=== PATIENT | male | born 1950 | race Caucasian/White ===

== ENCOUNTER 2020-02-08 19:19 | Observation (INO) | payer OTHER, SELFPAY ==
[2020-02-08] VITALS (7 sets, daily range): BP systolic 144–164; BP diastolic 77–105; PULSE 49–61; RESP 14–18; TEMP 36.3–36.6; O2SAT 96–99; BMI 29.8
--- NOTE | 2020-02-08 20:17 | DI.RAD.S_ITS ---
PROCEDURE: XR CHEST 1V INDICATIONS: chest pain TECHNIQUE: One view of the chest was acquired. COMPARISON: None. FINDINGS: Surgical changes and devices: Partially imaged left shoulder arthroplasty Lungs and pleura: Lungs are clear. No pleural effusions or pneumothorax. Mediastinum: Mediastinal contours appear normal. Heart size is normal. Bones and chest wall: No suspicious bony lesions. Overlying soft tissues appear unremarkable. IMPRESSION: No acute cardiopulmonary abnormalities. No focal airspace disease. Dictated by: Vega Dupree M.D. on 02/08/2020 at 21:39 Approved by: Vega Dupree M.D. on 02/08/2020 at 21:39
--- NOTE | 2020-02-08 20:28 | ED.CHESTPAIN ---
HPI - Chest Pain General Chief Complaint: Chest Pain Stated Complaint: SOB TINGGLING LEGS Time Seen by Provider: 02/08/20 20:27 Source: patient Mode of arrival: Family Vehicle Limitations: no limitations History of Present Illness HPI narrative: This is a 69-year-old male emergency department with complaint of shortness of breath and chest pressure that started while he was mowing his lawn. He states he typically runs and rain yesterday and the day before and had no issues. Today while mowing his lawn he started to feel short of breath, he felt like it was hard to push she was tired. He had tingling in both of his feet he felt a little lightheaded but never felt like he was going to pass out. He also had a sensation of chest pressure which has since improved but is still present. This all started about 4:00 a.m. in the evening. Patient denies any nausea, no vomiting, no diarrhea constipation. No abdominal pain. No issues with urination. He has not had any fevers, no cough cold or congestion. He denies any swelling in his lower extremities. He states he feels a little off today in general. He denies headache, denies any vision changes. No issues with weakness on 1 side versus the other and states his extremities are working properly. He had tingling in both legs but no tingling or numbness on right versus left. He does take medications for manic, he states there are 3 of them he believes one is Buproprion and is having trouble remembering the name of the others. Related Data Home Medications Medication Instructions Recorded Confirmed bupropion HCl 300 mg PO QAM 02/08/20 02/08/20 omeprazole 20 mg PO DAILY 02/08/20 02/08/20 simvastatin 20 mg PO BEDTIME 02/08/20 02/08/20 trazodone 100 mg PO BEDTIME PRN 02/08/20 02/08/20 vortioxetine [Trintellix] 20 mg PO DAILY 02/08/20 02/08/20 Allergies Allergy/AdvReac Type Severity Reaction Status Date / Time No Known Drug Allergies Allergy Verified 02/08/20 19:59 Review of Systems Review of Systems ROS Unobtainable: All systems reviewed & are unremarkable except as noted in HPI and below Patient History Medical History (Updated 02/08/20 @ 23:33 by DAISY Borrero) Bipolar disorder (Acute) Dyspepsia (Acute) Hyperlipidemia (Acute) Surgical History (Updated 02/08/20 @ 23:33 by DAISY Borrero) History of appendectomy (Acute) Family History (Updated 02/08/20 @ 23:34 by DAISY Borrero) Mother TIA (transient ischemic attack) Kidney disease Father Cancer Sister No significant medical problems Social History household members: spouse Smoking Status: Never smoker alcohol intake: never Smoking Status: Never smoker Substance Use Type: marijuana Exam Narrative Exam Narrative: GENERAL: Alert and oriented x three, well-nourished, well-appearing male in mild distress. HEENT: Head normocephalic, atraumatic, EOMI, pupils reactive, face symmetric, moist mucous membranes NECK: Supple, full range of motion CARDIOVASCULAR: Regular rate and rhythm without murmurs, rubs or gallops. Chest is nontender to palpation. No rash or erythema. RESPIRATORY: Breath sounds equal bilaterally, no wheezes rales or rhonchi. No tachypnea accessory muscle use. ABDOMEN: Soft, nontender. Normoactive bowel sounds all 4 quadrants. No guarding or rebound, rigidity, no mass : No CVA tenderness EXTREMITIES: Normal range of motion, no clubbing or edema. Neurovascularly intact NEUROLOGICAL: Cranial nerves II through XII grossly intact. Moving all extremities SKIN: Warm, dry, no petechiae, no rashes or lesions. Initial Vital Signs Initial Vital Signs: Vital Signs Temperature 97.8 F 02/08/20 19:59 Pulse Rate 61 02/08/20 19:59 Respiratory Rate 15 02/08/20 19:59 Blood Pressure 153/105 H 02/08/20 19:59 Pulse Oximetry 98 02/08/20 19:59 Scores HEART Score Heart Score history: Moderately Suspicious Heart Score EKG: Normal Heart Score Age: > or = 65 years old Heart Score risk factors: 1-2 risk factors Heart Score troponin: < or = to normal limit Heart Score Total: 4 Course Orders Ordered: ED Orders 02/08/20 20:02 EKG-12 Lead Stat 02/08/20 20:17 XR chest 1V Stat 02/08/20 20:30 Complete Blood Count AUTO DIFF Stat Comprehensive Metabolic Panel Stat Lipase Stat Lipid Panel Routine Magnesium Routine Partial Thromboplastin Time Stat Prothrombin Time INR Stat Troponin & CK Cardiac Panel Stat 02/08/20 22:19 Education, smoking cessation ONGOING 02/08/20 22:22 Consult to Discharge Planning Routine 02/08/20 22:23 Education, smoking cessation ONGOING 02/08/20 23:58 Troponin I Urgent 02/09/20 05:00 Basic Metabolic Panel Routine Acetaminophen (Tylenol) 650 mg PO Q6HR PRN PRN Reason: Fever/Mild Pain (1-3) Al Hydrox/Mg Hydrox/Simethicone (Maalox Plus) 30 ml PO Q6HR PRN PRN Reason: Dyspepsia Aspirin (Aspirin Ec) 81 mg PO DAILY [facility] Bisacodyl (Dulcolax) 10 mg PO DAILY PRN PRN Reason: Constipation Bupropion HCl (Wellbutrin Xl) 300 mg PO DAILY [facility] Last Admin: 02/09/20 00:26 Dose: Not Given Documented by: JODIE Calcium Carbonate (Tums) 1,000 mg PO Q4HR PRN PRN Reason: Dyspepsia Docusate Sodium (Colace) 100 mg PO BID PRN PRN Reason: Constipation Enoxaparin Sodium (Lovenox) 40 mg SUBCUT DAILY [facility] Sodium Chloride (Normal Saline 0.9%) 1,000 mls @ 75 mls/hr IV CONT [facility] Last Admin: 02/09/20 00:01 Dose: 75 mls/hr Documented by: JODIE Morphine Sulfate (Morphine) 2 mg IV Q5MIN PRN PRN Reason: Chest Pain Naloxone HCl (Narcan) 0.2 mg IV Q2MIN PRN PRN Reason: Opiate Reversal Nitroglycerin (Nitrostat) 0.4 mg SL [id number] PRN PRN Reason: Chest Pain Last Admin: 02/08/20 21:25 Dose: 0.4 mg Documented by: JENNIFER Nitroglycerin (Nitrostat) 0.4 mg SL [id number] PRN PRN Reason: Chest Pain Non-Formulary Medication (Vortioxetine [Trintellix]) 20 mg PO DAILY [facility] Ondansetron HCl (Zofran) 4 mg IV Q8HR PRN PRN Reason: Nausea And Vomiting Pantoprazole Sodium (Protonix) 20 mg PO DAILY PRN PRN Reason: Heartburn Simvastatin (Zocor) 20 mg PO BEDTIME ANA Trazodone HCl (Desyrel) 100 mg PO BEDTIME PRN PRN Reason: Sleep Last Admin: 02/09/20 00:17 Dose: 100 mg Documented by: JODIE Discontinued Medications Aspirin (Aspirin Chew) 324 mg PO NOW ONE Stop: 02/08/20 20:52 Last Admin: 02/08/20 21:25 Dose: 324 mg Documented by: CVANCE Vital Signs Vital signs: Vital Signs - 8 hr 02/08/20 19:59 02/08/20 21:24 02/08/20 21:25 Temperature 97.8 F Pulse Rate 61 50 L Respiratory Rate 15 18 Blood Pressure 153/105 H 163/83 H Blood Pressure [Left Arm] 163/83 H Pulse Oximetry 98 96 02/08/20 22:23 02/08/20 23:00 Temperature 97.4 F L Pulse Rate 49 L 50 L Respiratory Rate 14 18 Blood Pressure 163/81 H Blood Pressure [Left Arm] 144/77 H Pulse Oximetry 97 97 MDM - Chest Pain Lab Data Attestation: I reviewed the patient's lab results. Result diagrams: 02/08/20 20:30 02/08/20 20:30 Labs: Lab Results 02/08/20 02/08/20 02/08/20 Range/Units 20:30 20:30 20:30 WBC 5.8 (4.5-11.0) X10^3/uL RBC 4.56 (4.5-5.9) X10^6/uL Hgb 14.2 (13.5-17.5) g/dL Hct 42.4 (41-53) % MCV 93.0 (80-100) fL MCH 31.1 (26-34) PG MCHC 33.5 (30-36) % RDW 14.0 (11.6-14.8) % Plt Count 196 (150-400) X10^3/uL Neut % (Auto) 61.0 (50-75) % Lymph % (Auto) 28.9 (25-40) % [place] % (Auto) 6.1 (3-14) % Eos % (Auto) 3.5 (2-4) % Baso % (Auto) 0.5 (0-2) % Neut # (Auto) 3500 (0484-0152) /uL Lymph # (Auto) 1700 (0109-1129) /uL [place] # (Auto) 400 (0-900) /uL Eos # (Auto) 200 (0-450) /uL Baso # (Auto) 0 (0-100) /uL PT 10.9 (10.1-12.7) SECONDS INR 0.9 (0.9-1.3) APTT 30 (26.4-36.2) SECONDS Sodium 138 (137-145) mmol/L Potassium 3.4 (3.4-5.1) mmol/L Chloride 107 (98-107) mmol/L Carbon Dioxide 27 (22-32) mmol/L BUN 18 (9-20) mg/dL Creatinine 0.70 (0.66-1.25) mg/dL Estimated GFR > 60.0 (>60) mL/min BUN/Creatinine Ratio 25.7 H (6-22) Glucose 148 H (80-110) mg/dL Calcium 8.8 (8.4-10.2) mg/dL Magnesium (1.6-2.3) mg/dL Total Bilirubin 0.3 (0.2-1.3) mg/dL AST 57 (17-59) IU/L ALT 46 (<50) IU/L Alkaline Phosphatase 60 (38-126) U/L Total Creatine Kinase 265 H (55-170) U/L CK-MB (CK-2) 1.80 (<2.37) ng/mL CK-MB (CK-2) Rel Index 0.7 L (1.5-5.0) % Troponin I < 0.012 (0.01-0.034) ng/mL Total Protein 6.8 (6.3-8.2) g/dL Albumin 3.8 (3.5-5.0) g/dL Globulin 3.0 (1.7-4.1) g/dL Albumin/Globulin Ratio 1.3 (1.0-2.8) Triglycerides (35-150) mg/dL Cholesterol (140-199) mg/dL LDL Cholesterol, Calc (<100) mg/dL HDL Cholesterol (40-60) mg/dL Lipase 86 (23-300) U/L 02/08/20 02/08/20 Range/Units 20:30 20:30 WBC (4.5-11.0) X10^3/uL RBC (4.5-5.9) X10^6/uL Hgb (13.5-17.5) g/dL Hct (41-53) % MCV (80-100) fL MCH (26-34) PG MCHC (30-36) % RDW (11.6-14.8) % Plt Count (150-400) X10^3/uL Neut % (Auto) (50-75) % Lymph % (Auto) (25-40) % [place] % (Auto) (3-14) % Eos % (Auto) (2-4) % Baso % (Auto) (0-2) % Neut # (Auto) (2824-6421) /uL Lymph # (Auto) (4795-6921) /uL [place] # (Auto) (0-900) /uL Eos # (Auto) (0-450) /uL Baso # (Auto) (0-100) /uL PT (10.1-12.7) SECONDS INR (0.9-1.3) APTT (26.4-36.2) SECONDS Sodium (137-145) mmol/L Potassium (3.4-5.1) mmol/L Chloride (98-107) mmol/L Carbon Dioxide (22-32) mmol/L BUN (9-20) mg/dL Creatinine (0.66-1.25) mg/dL Estimated GFR (>60) mL/min BUN/Creatinine Ratio (6-22) Glucose (80-110) mg/dL Calcium (8.4-10.2) mg/dL Magnesium 2.2 (1.6-2.3) mg/dL Total Bilirubin (0.2-1.3) mg/dL AST (17-59) IU/L ALT (<50) IU/L Alkaline Phosphatase (38-126) U/L Total Creatine Kinase (55-170) U/L CK-MB (CK-2) (<2.37) ng/mL CK-MB (CK-2) Rel Index (1.5-5.0) % Troponin I (0.01-0.034) ng/mL Total Protein (6.3-8.2) g/dL Albumin (3.5-5.0) g/dL Globulin (1.7-4.1) g/dL Albumin/Globulin Ratio (1.0-2.8) Triglycerides 107 (35-150) mg/dL Cholesterol 178 (140-199) mg/dL LDL Cholesterol, Calc 104 H (<100) mg/dL HDL Cholesterol 53 (40-60) mg/dL Lipase (23-300) U/L Imaging Data Chest x-ray: Radiologist's Impression: [address] [address] XRay Report Signed Patient: Memo Escobedo KMR#: [id number] : 3Acct:[id number] Age/Sex: 69 / MDate of Service: 02/08/20 Loc: ED Accession Number: [id number] Procedure: XR chest 1V Ordering Provider: Brittney Mike D.O. PROCEDURE: XR CHEST 1V INDICATIONS: chest pain TECHNIQUE: One view of the chest was acquired. COMPARISON: None. FINDINGS: Surgical changes and devices: Partially imaged left shoulder arthroplasty Lungs and pleura: Lungs are clear. No pleural effusions or pneumothorax. Mediastinum: Mediastinal contours appear normal. Heart size is normal. Bones and chest wall: No suspicious bony lesions. Overlying soft tissues appear unremarkable. IMPRESSION: No acute cardiopulmonary abnormalities. No focal airspace disease. Dictated by: Vega Dupree M.D. on 02/08/2020 at 21:39 Approved by: Vega Dupree M.D. on 02/08/2020 at 21:39 ECG Data Attestation: I personally reviewed and interpreted this ECG as follows: Prior ECG tracings: not available for review Interpretation: Sinus bradycardia rate of 55 VT 144 QRS 88 QTC of 430. No ST elevation or depression noted. No prior EKG available. MDM Narrative Medical decision making narrative: Recheck after ASA and nitro SL, patient states shortness of breath and chest pain have completely resolved. He is feeling much better. He does have risk factors as heart score is 4. I spoke with the hospitalist for observation and stress testing. Discussed with HOME SCHOOL COORDINATOR Alfredo Lyn for observation and he accepts. Discharge Plan Departure Patient Disposition: Admitted as Observation Clinical Impression: Chest pain Discharge Date/Time: 02/08/20 23:11 Admit Date/Time: 02/08/20 23:03 Admit Provider: Memo Lyn
[2020-02-08 21:09] LABS: Add Manual Diff / Slide Review NO; Basophils Absolute Auto 0 /uL (0-100); Basophils Percent Auto 0.5 % (0-2); Eosinophils Absolute Auto 200 /uL (0-450); Eosinophils Percent Auto 3.5 % (2-4); Hematocrit 42.4 % (41-53); Hemoglobin 14.2 g/dL (13.5-17.5); INR 0.9 (0.9-1.3); Lymphocytes Absolute Auto 1700 /uL (1100-4500); Lymphocytes Percent Auto 28.9 % (25-40); Mean Corpuscular HGB Conc 33.5 % (30-36); Mean Corpuscular Hemoglobin 31.1 PG (26-34); Monocytes Absolute Auto 400 /uL (0-900); Monocytes Percent Auto 6.1 % (3-14); Neutrophils Absolute Auto 3500 /uL (1500-7000); Platelet Count 196 X10^3/uL (150-400); Prothrombin Time 10.9 SECONDS (10.1-12.7); Red Blood Cell Count 4.56 X10^6/uL (4.5-5.9); White Blood Cell Count 5.8 X10^3/uL (4.5-11.0)
[2020-02-08 21:11] LABS: PTT Partial Thromboplastin Tim 30 SECONDS (26.4-36.2)
[2020-02-08 21:13] LABS: Alanine Aminotransferase 46 IU/L (<50); Albumin 3.8 g/dL (3.5-5.0); Albumin Globulin Ratio 1.3 (1.0-2.8); Alkaline Phosphatase 60 U/L (38-126); Aspartate Aminotransferase 57 IU/L (17-59); BUN Creatinine Ratio 25.7 (6-22); Bilirubin Total 0.3 mg/dL (0.2-1.3); Blood Urea Nitrogen 18 mg/dL (9-20); Calcium 8.8 mg/dL (8.4-10.2); Carbon Dioxide 27 mmol/L (22-32); Chloride 107 mmol/L (98-107); Creatine Kinase 265 U/L (55-170); Estimated Glomerular Filt Rate > 60.0 mL/min (>60); Glucose 148 mg/dL (80-110); HEMOLYSIS 17 (0-50); Lipase 86 U/L (23-300); Potassium 3.4 mmol/L (3.4-5.1); Sodium 138 mmol/L (137-145); Total Protein 6.8 g/dL (6.3-8.2)
[2020-02-08 21:24] LABS: Troponin I < 0.012 ng/mL (0.01-0.034)
[2020-02-08] MEDS: ASPIRIN 81 MG CHEW TAB 324 MG PO (21:25)
[2020-02-08] MEDS: NITROGLYCERIN 0.4 MG SL TAB SL (21:25)
[2020-02-08 21:28] LABS: CKMB % Relative Index 0.7 % (1.5-5.0)
[2020-02-08 22:36] LABS: Magnesium 2.2 mg/dL (1.6-2.3)
[2020-02-08 22:51] LABS: Cholesterol 178 mg/dL (140-199); HDL Cholesterol 53 mg/dL (40-60); LDL Cholesterol Calculated 104 mg/dL (<100); Triglycerides 107 mg/dL (35-150)
--- NOTE | 2020-02-08 23:24 | PM.HP.1 ---
History of Present Illness History of Present Illness Date Patient Seen: 02/08/20 Time Patient Seen: 22:30 Chief complaint: SOB TINGGLING LEGS Narrative: Mr. Memo Escobedo is a 69-year-old male the with a history significant for bipolar disorder hyperlipidemia and dyspepsia who presents to the ER with chest pain and shortness of breath. The patient reports that at 4:00 p.m. he was mowing his lawn 1 8 developed chest pressure and some shortness of breath. He felt it was hard push similar and felt fatigued and lightheaded, also reports tingling of both feet which he has not experienced previously. He called at baseline who referred him to the ER and upon arrival he states his chest pressure was improved but still present. His chest MrJose Armando resolved with a single dose of sublingual nitroglycerin. He continues to feel fatigued. He does report that at the end of December beginning of January that he had the flu and that he subsequently felt tired for the following 3 weeks. He reports for the last 1 week he has been feeling fine. He is normally active and runs. Lives on [address]. He denies complaints headache or vision changes, nasal congestion or sore throat. He does described substernal chest pressure that is now resolved without radiation to the back shoulder or jaw. He states he always has a low heart rate and rarely gets over 60 and can typically be in the 40s to 50s. He reports no nausea, vomiting or diaphoresis. He reports no heartburn and takes omeprazole daily. He denies changes in bowel habits with her last bowel movement yesterday. He reports no urinary difficulty able to form a strong stream and nocturia 0-1 time nightly. He denies swelling of the extremities. Upon arrival to the ER the patient is afebrile with temperature 97.8?, heart rate of 61, blood pressure 153/105, respirations of 15 saturating 98% on room air. Chest x-ray was taken which showed no acute cardiopulmonary processes. Twelve lead EKG finds sinus bradycardia with ventricular rate of 54 without ectopy or block, normal axis and no ST or T-wave changes. On laboratory analysis he has a white count of 5.8, hemoglobin 14.2, hematocrit of 42.4 platelets 198. On coags he has a PT of 10.9, INR 0.9 and a PTT of 30. On chemistries his electrolytes are within normal limits with a borderline potassium of 3.4. His BUN is 18 and creatinine 0.7 with a nonfasting glucose 148. His liver function tests are all within normal limits. He has a total CK of 265, CK-MB of 1.8 with an index of 0.7. His troponin is less than 0.012. He does have a family history of cardiovascular disease and his grandmother grandfather and his mother had cerebrovascular disease. The patient received aspirin 324 mg chewed and the aforementioned sublingual nitroglycerin x1. Patient admitted to the medicine service for chest pain rule out ACS. Patient History Medical History (Updated 02/08/20 @ 23:33 by DAISY Borrero) Bipolar disorder (Acute) Dyspepsia (Acute) Hyperlipidemia (Acute) Surgical History (Updated 02/08/20 @ 23:33 by DAISY Borrero) History of appendectomy (Acute) Family & Social History Family History (Updated 02/08/20 @ 23:34 by DAISY Borrero) Mother TIA (transient ischemic attack) Kidney disease Father Cancer Sister No significant medical problems Tobacco & Substance use: Smoking Status Never smoker Substance Use Type marijuana Comment: The patient lives on [place] in a single family 3 level home with his to him he has been for 30 years. He reports that his father from sarcoma muscle and his mother had TIAs and kidney disease. His sister is in good health and he has a half brother whom he does not know his medical history has 2 children he describes in is in good health. He has that his grandfather and grandmother have a history of heart disease. 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 Alcohol: The patient denies consuming alcohol Substance use: The patient endorses periodic use of cannabis to facilitate sleep last use 1 week ago. Advanced directives: The patient has formal advanced directive insulin states his desire that he wishes to be FULL CODE. He designates his to be his surrogate decision maker. Meds Home Medications and Allergies Home Medications Medication Instructions Recorded Confirmed Type bupropion HCl 300 mg PO QAM 02/08/20 02/08/20 History omeprazole 20 mg PO DAILY 02/08/20 02/08/20 History simvastatin 20 mg PO BEDTIME 02/08/20 02/08/20 History trazodone 100 mg PO BEDTIME PRN 02/08/20 02/08/20 History vortioxetine [Trintellix] 20 mg PO DAILY 02/08/20 02/08/20 History Allergies Allergy/AdvReac Type Severity Reaction Status Date / Time No Known Drug Allergies Allergy Verified 02/08/20 19:59 Review of Systems Review of Systems ROS: Yes All systems reviewed with the patient and are negative except as otherwise documented Exam Vital Signs (past 8 hours): - 02/08/20 19:59 02/08/20 21:24 02/08/20 21:25 Temperature 97.8 F Pulse Rate 61 50 L Respiratory Rate 15 18 Blood Pressure 153/105 H 163/83 H Blood Pressure [Left Arm] 163/83 H Pulse Oximetry 98 96 02/08/20 22:23 02/08/20 23:06 02/08/20 23:08 Temperature Pulse Rate 49 L 52 L 49 L Respiratory Rate 14 Blood Pressure 144/77 H Blood Pressure [Left Arm] 144/77 H 164/77 H Pulse Oximetry 97 96 97 Oxygen Delivery Method Room Air Narrative Exam Narrative: GENERAL APPEARANCE: well developed, well nourished, in no acute distress. HEENT: Normocephalic, wears glasses, PERRLA, conjunctiva clear, EOMs intact without nystagmus, no sinus tenderness to percussion, no rhinorrhea, mucous membranes are moist and pink without lesions or exudate. NECK/THYROID: neck supple, no JVD, no carotid bruit, no thyromegaly, trachea midline. LYMPH NODES: no cervical or supraclavicular lymphadenopathy. SKIN: [place], warm and dry, no visible lesions, rashes, ulcerations or petechiae. HEART: Bradycardic heart rate with regular rhythm, S1-S2, no murmur, no rubs or gallops, brisk capillary refill, no edema LUNGS: clear to auscultation bilaterally, no coarseness crackles or wheezing, no cough present CHEST: Symmetrical movement, no accessory muscle use, good tidal volume. ABDOMEN: Soft, round, dull to percussion, no abdominal tenderness, no guarding or peritoneal signs, no organomegaly, no flank or suprapubic tenderness, active bowel tones. BACK: Normal curvature, nontender to palpation, no CVA tenderness on percussion, no back pain with straight leg raise. EXTREMITIES: moves all extremities, strength is 5/5 and symmetrical, no deformities or joint effusions. NEUROLOGIC: AAO x4, no focal neurologic deficits, cranial nerves II-XII grossly intact, slightly decreased sensation bilateral feet, hearing grossly normal to speech. PSYCH: Good judgment, good insight, linear thought process, cooperative, appropriate with stable behavior. Objective Labs Result Diagrams: 02/08/20 20:30 02/08/20 20:30 Labs: Laboratory Results - last 24 hr 02/08/20 02/08/20 02/08/20 20:30 20:30 20:30 WBC 5.8 RBC 4.56 Hgb 14.2 Hct 42.4 MCV 93.0 MCH 31.1 MCHC 33.5 RDW 14.0 Plt Count 196 Neut % (Auto) 61.0 Lymph % (Auto) 28.9 [place] % (Auto) 6.1 Eos % (Auto) 3.5 Baso % (Auto) 0.5 Neut # (Auto) 3500 Lymph # (Auto) 1700 [place] # (Auto) 400 Eos # (Auto) 200 Baso # (Auto) 0 PT 10.9 INR 0.9 APTT 30 Sodium 138 Potassium 3.4 Chloride 107 Carbon Dioxide 27 BUN 18 Creatinine 0.70 Estimated GFR > 60.0 BUN/Creatinine Ratio 25.7 H Glucose 148 H Calcium 8.8 Magnesium Total Bilirubin 0.3 AST 57 ALT 46 Alkaline Phosphatase 60 Total Creatine Kinase 265 H CK-MB (CK-2) 1.80 CK-MB (CK-2) Rel Index 0.7 L Troponin I < 0.012 Total Protein 6.8 Albumin 3.8 Globulin 3.0 Albumin/Globulin Ratio 1.3 Triglycerides Cholesterol LDL Cholesterol, Calc HDL Cholesterol Lipase 86 02/08/20 02/08/20 20:30 20:30 WBC RBC Hgb Hct MCV MCH MCHC RDW Plt Count Neut % (Auto) Lymph % (Auto) [place] % (Auto) Eos % (Auto) Baso % (Auto) Neut # (Auto) Lymph # (Auto) [place] # (Auto) Eos # (Auto) Baso # (Auto) PT INR APTT Sodium Potassium Chloride Carbon Dioxide BUN Creatinine Estimated GFR BUN/Creatinine Ratio Glucose Calcium Magnesium 2.2 Total Bilirubin AST ALT Alkaline Phosphatase Total Creatine Kinase CK-MB (CK-2) CK-MB (CK-2) Rel Index Troponin I Total Protein Albumin Globulin Albumin/Globulin Ratio Triglycerides 107 Cholesterol 178 LDL Cholesterol, Calc 104 H HDL Cholesterol 53 Lipase Assessment & Plan Assessment & Plan narrative: 1. Acute chest pain, substernal nonradiating, present on admission, active. -Symptoms onset while mowing lawn today at 4:00 p.m. with associated shortness of breath and lightheadedness with bilateral feet tingling, no complaints of -palpitations nausea vomiting or diaphoresis. -Chest pressure persisted but improved upon arrival to the ER relieved with 1 sublingual nitroglycerin. -Chest x-ray finds no acute cardiopulmonary processes, 12 lead EKG finds sinus Mario at ventricular rate of 54 without ectopy, block, ST or T-wave changes. -Total CK slightly elevated 265, MB is 1.0 with index is 0.7. Troponin is less than 0.012. -Patient received aspirin 324 mg chewed in the ER, order aspirin 81 mg daily. -Ordered nitroglycerin 0.4 mg sublingual Q 5 minutes x3 as needed for chest pain. -Ordered morphine 2 mg as needed for chest pain unrelieved by nitro. -Patient will remain on telemetry. -Ordered stress test for the morning, patient is NPO at midnight. 2. Elevated blood pressure without diagnosis of hypertension, present on admission, active. -Patient had a blood pressure of 153/105 admission to the emergency department. Blood pressure is very between mid 140s and 160s. -The patient does not take routine antihypertensive medications. -Patient is currently pain-free, will monitor blood pressures. -Will evaluate the need for antihypertensive medication if pressure is remain elevated. 3. Dyslipidemia, chronic, stable. -Will continue patient's home regimen of simvastatin 20 mg daily. -Will obtain lipid panel with morning labs. 4. Bipolar disorder, chronic, stable. -Cooperative with appropriate behaviors. -Will continue home medications of bupropion ER 300 mg daily and Trintellix 20 mg daily. -Will continue patient's trazodone 100 mg at bedtime for sleep. 5. Dyspepsia, chronic, stable -Patient has been taking omeprazole daily without complaints of symptoms. -Will continue omeprazole 20 mg daily as needed for heartburn. VTE prophylaxis: SCDs, enoxaparin. IV fluids: Normal saline 75 cc/hour. Diet: Heart healthy, NPO at midnight. The patient is admitted to the hospital for cardiac monitoring and further evaluation related to the patient's per day and symptoms and risk for potential complications and adverse events. The patient is admitted as observation with expected length of stay to be less than 2 midnights. Scores GCS [place] coma scale eye opening: Spontaneous [place] coma scale verbal response: Orientated May coma scale motor response: Obey commands [place] coma scale total score: 15
[2020-02-09] MEDS: SODIUM CHLORIDE 0.9% 1,000 ML 75 ML IV (00:01)
[2020-02-09 00:06] VITALS: BMI 29.8
[2020-02-09] MEDS: TRAZODONE 100 MG TABLET PO (00:17)
[2020-02-09 00:55] LABS: Troponin I < 0.012 ng/mL (0.01-0.034)
[2020-02-09 02:39] VITALS: PULSE 52
[2020-02-09 03:00] VITALS: O2SAT 97
[2020-02-09 05:14] VITALS: BP 133/61; PULSE 59; RESP 16; TEMP 36.2; O2SAT 96
[2020-02-09 06:42] LABS: BUN Creatinine Ratio 24.3 (6-22); Blood Urea Nitrogen 17 mg/dL (9-20); Calcium 8.5 mg/dL (8.4-10.2); Carbon Dioxide 26 mmol/L (22-32); Chloride 107 mmol/L (98-107); Estimated Glomerular Filt Rate > 60.0 mL/min (>60); Glucose 89 mg/dL (80-110); HEMOLYSIS < 15 (0-50); Potassium 3.9 mmol/L (3.4-5.1); Sodium 137 mmol/L (137-145)
--- NOTE | 2020-02-09 06:54 | PC.ADMIT ---
[address] Admission Note: Late entry 2330 - Pt arrived to unit without issues via w/c. Pt alert and oriented x4. SBA to bed. Pt has no complaints of chest pain or shortness of breath. Skin check done with STORM Johnson. Tele reading sinus bradycardia, pt asymptomatic without complaints. Riki VILLA aware. The patient,Memo Escobedo,69 y/o, was given written information regarding hospital policies, unit procedures and contact persons. Patient's smoking status: Never smoker. Vital Signs - 8 hr 02/08/20 23:00 02/08/20 23:06 02/08/20 23:08 Temperature 97.4 F L Pulse Rate 50 L 52 L 49 L Respiratory Rate 18 Blood Pressure 163/81 H 144/77 H Blood Pressure [Left Arm] 164/77 H Pulse Oximetry 97 96 97 02/09/20 02:39 02/09/20 03:00 02/09/20 05:14 Temperature 97.2 F L Pulse Rate 52 L 59 L Respiratory Rate 16 Blood Pressure 133/61 Blood Pressure [Left Arm] Pulse Oximetry 97 96
[2020-02-09 09:00] VITALS: BP 148/85; PULSE 56; RESP 16; TEMP 36.2; O2SAT 98
[2020-02-09] MEDS: buPROPion XL 150 MG TAB 300 MG PO (09:11)
[2020-02-09] MEDS: ASPIRIN EC 81 MG TABLET PO (09:11)
[2020-02-09] MEDS: ENOXAPARIN 40 MG/0.4 ML SYRINGE SUBCUT (09:11)
--- NOTE | 2020-02-09 11:49 | CM.DANOTE ---
DCP Assessment: (EMR Reviewed): Patient is a pleasant 69 year old male admitted to the care of the hospitalist team for monitoring of chest pain. Met with the patient in his room and introduced self and role. Confirmed insurance with [employer]. PCP Dr. Wolf. 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 He report being independent with alls ADLs at baseline including driving. Patient state his plan is to discharge home with his and that they will be going to [employer] for the next short while. Patient is to have a stress test today, pending results will DC today. I: Kahlil (Confirmed) P: Discharge home with , Katty. Patient reports this is his preferred plan and feels confident with it. No barriers to discharge identified but will continue to monitor and be available for discharge needs. SN Roslyn Abdi RN Discharge Planning/Care Management CM Discharge Assessment Start: 02/09/20 11:47 Freq: Status: Active Protocol: Document 02/09/20 11:47 HS (Rec: 02/09/20 11:49 HS [id number]) Discharge Planning Assessment Assigned Optical Fabrication Technician Roslyn Phan RN/SN [place] DPOA/Assigned Designee Name Katty Soto (Spouse) Contact Information [phone] Advance Directives? Yes History Provided By Patient,Medical Record Has Patient been admitted in last 30 No days? Prior Living Arrangements House Household Members spouse Type of transporation used prior to Drives own vehicle admit Independent with ADL's Yes Is patient alert and oriented? Yes Caregiver for Another No Barriers to Discharge No Discharge Plan Home Referrals Initiated None needed Whiteboard Updated in Patient Room with Yes name and ext. # of Optical Fabrication Technician Review Status In Process Next Review Type Continued Stay Review
--- NOTE | 2020-02-09 12:03 | PM.TREADMILL ---
Cardiac Stress Test Report Referral & Results Date Patient Seen: 02/09/20 Time Patient Seen: 12:03 Requesting provider: Memo Lyn Indication: chest pain Rest ECG: normal sinus rhythm Procedure Note: Standard Jose protocol, 9:01, 9.7 METS Very good exercise capacity, DEIDRE -18% Normal hemodynamic response to exercise No chest pain or anginal symptoms Resting ECG sinus rhythm, no ST changes; no ectopy Impression: normal exercise stress test Nuclear images pending. Please note: Actual ECG tracings can be found in the PACS system.
[2020-02-09 13:30] VITALS: BP 166/89; PULSE 61; RESP 18; TEMP 36.6; O2SAT 97
--- NOTE | 2020-02-09 13:54 | P.DS_ITS ---
History of Present Illness History of Present Illness Date Patient Seen: 02/09/20 Chief complaint: SOB TINGGLING LEGS Narrative: Mr. Memo Escobedo is a 69-year-old male the with a history significant for bipolar disorder hyperlipidemia and dyspepsia who presents to the ER with chest pain and shortness of breath. The patient reports that at 4:00 p.m. he was mowing his lawn 1 8 developed chest pressure and some shortness of breath. He felt it was hard push similar and felt fatigued and lightheaded, also reports tingling of both feet which he has not experienced previously. He called at baseline who referred him to the ER and upon arrival he states his chest pressure was improved but still present. His chest MrJose Armando resolved with a single dose of sublingual nitroglycerin. He continues to feel fatigued. He does report that at the end of December beginning of January that he had the flu and that he subsequently felt tired for the following 3 weeks. He reports for the last 1 week he has been feeling fine. He is normally active and runs. Lives on [address]. He denies complaints headache or vision changes, nasal congestion or sore throat. He does described substernal chest pressure that is now resolved without radiation to the back shoulder or jaw. He states he always has a low heart rate and rarely gets over 60 and can typically be in the 40s to 50s. He reports no nausea, vomiting or diaphoresis. He reports no heartburn and takes omeprazole daily. He denies changes in bowel habits with her last bowel movement yesterday. He reports no urinary difficulty able to form a strong stream and nocturia 0-1 time nightly. He denies swelling of the extremities. Upon arrival to the ER the patient is afebrile with temperature 97.8?, heart rate of 61, blood pressure 153/105, respirations of 15 saturating 98% on room air. Chest x-ray was taken which showed no acute cardiopulmonary processes. Twelve lead EKG finds sinus bradycardia with ventricular rate of 54 without ectopy or block, normal axis and no ST or T-wave changes. On laboratory analysi s he has a white count of 5.8, hemoglobin 14.2, hematocrit of 42.4 platelets 198. On coags he has a PT of 10.9, INR 0.9 and a PTT of 30. On chemistries his electrolytes are within normal limits with a borderline potassium of 3.4. His BUN is 18 and creatinine 0.7 with a nonfasting glucose 148. His liver function tests are all within normal limits. He has a total CK of 265, CK-MB of 1.8 with an index of 0.7. His troponin is less than 0.012. He does have a family history of cardiovascular disease and his grandmother grandfather and his mother had cerebrovascular disease. The patient received aspirin 324 mg chewed and the aforementioned sublingual nitroglycerin x1. Patient admitted to the medicine service for chest pain rule out ACS. Discharge Providers Provider Date of admission: 02/08/20 23:03 Discharge Date: 02/09/20 Consults: 02/08/20 22:22 Consult to Discharge Planning Routine Comment: Discharge provider: Louisa Lagunas MD Summary Hospital Course Discharge Diagnosis: 1. Chest pain 2. Hyperlipidemia 3. Gastroesophageal reflux disease 4. Bipolar affective disorder 5. Probable hypertension Hospital Course: Patient was admitted to the hospital for evaluation and treatment of chest pain. He underwent a nuclear medicine stress test which showed no reversible ischemia. The patient had no further chest pain. He was noted to be hypertensive. I discussed his elevated blood pressure with him. Patient reports that he often has blood pressure in the office in the hospital which resolved at home. I recommended that he obtain a home blood pressure cuff record the blood pressures and discuss with his primary care physician in follow-up. Patient is deemed appropriate for discharge and arrangements are made for him to discharge home. Status at Discharge Cognitive/behavioral status at discharge: oriented Functional status at discharge: independent ambulation Overall status at discharge: patient is back to baseline Time Spent with Patient Time spent: Less than 30 minutes Exam Vital Signs (past 8 hours): - 02/09/20 09:00 02/09/20 13:30 Temperature 97.2 F L 97.8 F Pulse Rate 56 L 61 Respiratory Rate 16 18 Blood Pressure 148/85 H 166/89 H Pulse Oximetry 98 97 Oxygen Delivery Method Room Air Oxygen Flow Rate 0 Narrative Exam Narrative: Lungs clear to auscultation Cardiac exam regular rate and rhythm normal S1-S2 Abdomen soft nontender Extremity no edema Objective Labs Result Diagrams: 02/08/20 20:30 02/09/20 05:55 Labs: Laboratory Results - last 24 hr 02/08/20 02/08/20 02/08/20 20:30 20:30 20:30 WBC 5.8 RBC 4.56 Hgb 14.2 Hct 42.4 MCV 93.0 MCH 31.1 MCHC 33.5 RDW 14.0 Plt Count 196 Neut % (Auto) 61.0 Lymph % (Auto) 28.9 [place] % (Auto) 6.1 Eos % (Auto) 3.5 Baso % (Auto) 0.5 Neut # (Auto) 3500 Lymph # (Auto) 1700 [place] # (Auto) 400 Eos # (Auto) 200 Baso # (Auto) 0 PT 10.9 INR 0.9 APTT 30 Sodium 138 Potassium 3.4 Chloride 107 Carbon Dioxide 27 BUN 18 Creatinine 0.70 Estimated GFR > 60.0 BUN/Creatinine Ratio 25.7 H Glucose 148 H Calcium 8.8 Magnesium Total Bilirubin 0.3 AST 57 ALT 46 Alkaline Phosphatase 60 Total Creatine Kinase 265 H CK-MB (CK-2) 1.80 CK-MB (CK-2) Rel Index 0.7 L Troponin I < 0.012 Total Protein 6.8 Albumin 3.8 Globulin 3.0 Albumin/Globulin Ratio 1.3 Triglycerides Cholesterol LDL Cholesterol, Calc HDL Cholesterol Lipase 86 02/08/20 02/08/20 02/08/20 20:30 20:30 23:58 WBC RBC Hgb Hct MCV MCH MCHC RDW Plt Count Neut % (Auto) Lymph % (Auto) [place] % (Auto) Eos % (Auto) Baso % (Auto) Neut # (Auto) Lymph # (Auto) [place] # (Auto) Eos # (Auto) Baso # (Auto) PT INR APTT Sodium Potassium Chloride Carbon Dioxide BUN Creatinine Estimated GFR BUN/Creatinine Ratio Glucose Calcium Magnesium 2.2 Total Bilirubin AST ALT Alkaline Phosphatase Total Creatine Kinase CK-MB (CK-2) CK-MB (CK-2) Rel Index Troponin I < 0.012 Total Protein Albumin Globulin Albumin/Globulin Ratio Triglycerides 107 Cholesterol 178 LDL Cholesterol, Calc 104 H HDL Cholesterol 53 Lipase 02/09/20 05:55 WBC RBC Hgb Hct MCV MCH MCHC RDW Plt Count Neut % (Auto) Lymph % (Auto) [place] % (Auto) Eos % (Auto) Baso % (Auto) Neut # (Auto) Lymph # (Auto) [place] # (Auto) Eos # (Auto) Baso # (Auto) PT INR APTT Sodium 137 Potassium 3.9 Chloride 107 Carbon Dioxide 26 BUN 17 Creatinine 0.70 Estimated GFR > 60.0 BUN/Creatinine Ratio 24.3 H Glucose 89 Calcium 8.5 Magnesium Total Bilirubin AST ALT Alkaline Phosphatase Total Creatine Kinase CK-MB (CK-2) CK-MB (CK-2) Rel Index Troponin I Total Protein Albumin Globulin Albumin/Globulin Ratio Triglycerides Cholesterol LDL Cholesterol, Calc HDL Cholesterol Lipase Discharge Plan Discharge Plan Patient Disposition: Home Discharge orders & Medications Prescriptions: Continued trazodone 100 mg Tablet 100 mg PO BEDTIME PRN (Reason: Sleep) RF: 0 simvastatin 20 mg Tablet 20 mg PO BEDTIME RF: 0 omeprazole 20 mg Capsule,Delayed Release(Dr/Ec) 20 mg PO DAILY RF: 0 bupropion HCl 300 mg Tablet Extended Release 24 Hr 300 mg PO QAM RF: 0 Trintellix 20 mg Tablet 20 mg PO DAILY RF: 0 Diet/Activity/Treatments Diet: Diet as Tolerated Activity: as tolerated Visit Report/Discharge Packet Instructions: DI for Chest Pain Visit Report Forms: Patient Portal/API, Stroke Signs & Symptoms Discharge Data Attending Provider: Memo Lyn Admit Date/Time: 02/08/20 23:03 Quality VTE Deep Vein Thrombosis/Pulmonary Embolism Present on Admission: No
--- NOTE | 2020-02-09 14:25 | PC.NURSE ---
Discharge Pt denies pain. no chest pain or SOB. Pt completed stress test without issue. PIV removed prior to d/c. D/c instructions provided to pt. He left with RN escort. Pt plans to drive himself.
--- NOTE | 2020-02-10 10:23 | DI.NM.S_ITS ---
DATE OF SERVICE: 02/09/2020 PROCEDURE: Exercise perfusion study. INDICATION: Chest pain with underlying hypertension and hyperlipidemia. RADIOPHARMACEUTICAL: 27.4 millicurie technetium-99m Myoview IV was injected at stress. This is a stress study only. CARDIAC STRESS: The patient walked on Jose protocol for about 9 minutes and achieved 87 percent of target heart rate. There was a hypertensive blood pressure response. Baseline blood pressure 166/80. Peak blood pressure 210/90. Maximum heart rate 133 beats per minute. The patient achieved 10.1 METS of workload and functional aerobic impairment -18 percent. Baseline EKG revealed sinus rhythm. During stress, there were no convincing ischemic changes. There was no significant arrhythmias. No chest pain. RAW DATA: There is increased subdiaphragmatic activity. GATED STUDY: Stress LV ejection 67 percent without any obvious wall motion abnormalities. Lung-heart ratio 0.31, which is within normal limits. The stress LV end-diastolic volume 140 mL MYOCARDIAL PERFUSION: Stress supine images revealed small size, mildly decreased perfusion of basal inferior wall, which got resolved during prone images, suggestive of diaphragmatic tissue attenuation artifact. Prone images revealed normal myocardial perfusion. CONCLUSION: I will call this study a normal myocardial perfusion study. Good exercise tolerance. Preserved LV function. No anginal symptoms. Hypertensive blood pressure response. Overall this is a low risk myocardial perfusion scan. Memo Escobedo - Lashonda/denise doc#: [id number]/job#: [id number] dd: 02/09/2020 16:46:00 dt: 02/10/2020 10:11:00 DICTATING MD/COPIES TO: Fantasma Whitt MD COPIES MNE: JD;
--- NOTE | 2020-02-15 15:23 | PC.NURSE ---
Late entry: NS stop time 02/08 2326
== END 2020-02-09 14:20 | disposition home or self-care (01) ==
LOC: ED 22:12 → AC 23:04
PROVIDERS: Admitting Provider Nurse Practitioner Adult Health; Emergency Provider Emergency Medicine; Visit Provider Nurse Practitioner Adult Health
DX: R07.9 Chest pain, unspecified (principal); R06.02 Shortness of breath; E78.5 Hyperlipidemia, unspecified; K21.9 Gastro-esophageal reflux disease without esophagitis; F31.9 Bipolar disorder, unspecified; R03.0 Elevated blood-pressure reading, without diagnosis of hypertension
CPT/HCPCS: 36415; 71045; 78451; 80048; 80053; 80061; 82550; 82553; 83690; 83735; 84484; 85025; 85610; 85730; 93005; 93010; 93017; 96360; 96361; 96372; 99284; G0378; A9502; J1650

== ENCOUNTER 2020-08-22 19:52 | Emergency (ER) | payer OTHER, SELFPAY ==
[2020-08-22] VITALS (11 sets, daily range): BP systolic 145–171; BP diastolic 69–92; PULSE 52–62; RESP 16–24; O2SAT 95–99; BMI 28.5
--- NOTE | 2020-08-22 20:02 | DI.CT.S_ITS ---
PROCEDURE: CT STROKE INDICATIONS: neuro changes NON TPA CANDIDATE TECHNIQUE: Noncontrast 4.5 mm thick angled axial sections acquired from the foramen magnum to the vertex, with coronal reformats. For radiation dose reduction, the following was used: automated exposure control, adjustment of mA and/or kV according to patient size. COMPARISON: None. FINDINGS: Image quality: Excellent. CSF spaces: Basal cisterns are patent. No extra-axial fluid collections. The ventricles are symmetric in size and shape. Brain: No intracranial bleeds or masses. There is cerebral volume loss for age, with resultant ventricular and sulcal prominence. There are periventricular and deep white matter chronic small vessel ischemic changes. 2.5 centimeter hypodensity noted in the left occipital lobe with surrounding edema and may represent subacute infarct with sciatic arcus edema versus neoplastic process with vasogenic edema. There is intracranial internal carotid artery atherosclerosis. Skull and face: Calvarium and visualized facial bones appear intact, without suspicious lesions. Sinuses: Visualized sinuses and mastoids are clear. IMPRESSION: 1. Left occipital hypodensity with surrounding edema which could represent subacute infarct versus less likely neoplastic process. 2. No intracranial hemorrhage. Findings discussed with Dr. Payne on August 22, 2020 at 8:39 p.m. This study fulfills neurological imaging criteria for inclusion or exclusion of acute stroke therapies based on available published neurological guidelines. Dictated by: Kasey Larsen MD, PhD on 08/22/2020 at 20:35 Approved by: Kasey Larsen MD, PhD on 08/22/2020 at 20:39
--- NOTE | 2020-08-22 20:02 | DI.RAD.S_ITS ---
PROCEDURE: XR CHEST 1V INDICATIONS: Possible stroke TECHNIQUE: One view of the chest was acquired. COMPARISON: [facility], CR, XR CHEST 1V, 02/08/2020, 20:35. FINDINGS: Surgical changes and devices: Left shoulder arthroplasty. Lungs and pleura: Lungs are clear. No pleural effusions or pneumothorax. Mediastinum: Mediastinal contours appear normal. Heart size is normal. Bones and chest wall: No suspicious bony lesions. Overlying soft tissues appear unremarkable. IMPRESSION: No acute cardiopulmonary disease process. Dictated by: Kasey Larsen MD, PhD on 08/22/2020 at 21:02 Approved by: Kasey Larsen MD, PhD on 08/22/2020 at 21:02
--- NOTE | 2020-08-22 20:05 | DI.CT.S_ITS ---
PROCEDURE: CT ANGIO HEAD AND NECK INDICATIONS: stroke symptoms resolved TECHNIQUE: Pre-contrast 4.5 mm thick sections acquired from the foramen magnum to the vertex. After the administration of intravenous contrast, 1 mm thick sections acquired from the aortic arch through the [place] of [place]. Post-contrast 4.5 mm thick sections then re-acquired from the foramen magnum to the vertex. 3-dimensional zquuwvu-[id number]-orpdmnbyzx (MIP) and/or volume rendering reformats were acquired of the central intracranial vasculature and neck separately. COMPARISON: [facility], CT, CT STROKE, 08/22/2020, 20:13. FINDINGS: Image quality: Excellent. BRAIN: CSF spaces: Ventricles are normal in size and shape. Basal cisterns are patent. No extra-axial fluid collections. Brain: No midline shift. 2.5 x 2.3 centimeter ring enhancing lesion noted in the left occipital lobe with surrounding edema concerning for either primary brain malignancy or solitary metastatic lesion.. Moreira-white matter interface appears intact. Skull and face: Calvarium and facial bones appear intact, without suspicious lesions. Orbits appear normal. Sinuses: Small mucous retention cyst versus polyp noted in the right maxillary sinus. mastoids are clear. HEAD CT ANGIOGRAPHY: Anterior circulation: Intracranial internal carotid arteries are normal in flow. Atherosclerotic calcifications noted in the cavernous and clinoid segments of the internal carotid arteries bilaterally which causes mild mass narrowing of the vessels. The flow within the paired anterior cerebral arteries is normal and symmetric. The flow within the middle cerebral arteries is normal and symmetric. The anterior communicating artery is seen. No aneurysms are seen. Posterior circulation: Visualized portions of the vertebral arteries demonstrate normal caliber, and join to form a normal appearing basilar artery. Flow within the posterior cerebral arteries is normal and symmetric. 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 No aneurysms are seen. Dural sinuses demonstrate normal postcontrast enhancement NECK CT ANGIOGRAPHY: Carotid system: The great vessels demonstrate a conventional anatomy as they arise from the aortic arch. The origins of the common carotid arteries appear patent. The common carotid arteries demonstrate normal caliber and courses. Calcified and soft atherosclerotic plaque noted in the origins of the internal carotid arteries which causes moderate, 50-69% stenosis of the origin right internal carotid artery and mild, less than 50% stenosis of the origin of the left internal carotid artery. Posterior circulation: Calcified atherosclerotic plaque noted in the origins of the vertebral arteries bilaterally which causes mild stenosis of the right vertebral artery and moderate stenosis of the left vertebral artery. The more superior extracranial portions of both vertebral arteries also demonstrate normal courses and calibers. They join to form a normal appearing basilar artery. Soft tissues: Visualized neck soft tissues demonstrate no suspicious abnormalities. Bones: No suspicious bony lesions. Spine degenerative disc disease and facet arthropathy. Visualized cervical spine appears normally aligned. IMPRESSION: 1. 2.5 x 2.3 centimeter brain and seen mass in the left occipital lobe highly suspicious for primary brain neoplasm versus solitary metastatic lesion. 2. Moderate, 50-69% stenosis of the origin the right internal carotid artery. 3. Mild, less than 50% stenosis of the origin of the left internal carotid artery. 4. Mild stenosis of the origin of the right vertebral artery and moderate stenosis of the origin of the left vertebral artery. Any quantitative measurements of stenosis were performed using NASCET criteria. Dictated by: Kasey Larsen MD, PhD on 08/22/2020 at 21:03 Approved by: Kasey Larsen MD, PhD on 08/22/2020 at 21:09
[2020-08-22 20:11] LABS: Add Manual Diff / Slide Review NO; Basophils Absolute Auto 0 /uL (0-100); Basophils Percent Auto 0.7 % (0-2); Eosinophils Absolute Auto 0 /uL (0-450); Eosinophils Percent Auto 0.7 % (2-4); Hemoglobin 15.4 g/dL (13.5-17.5); Lymphocytes Absolute Auto 1800 /uL (1100-4500); Lymphocytes Percent Auto 26.7 % (25-40); Mean Corpuscular HGB Conc 33.5 % (30-36); Mean Corpuscular Hemoglobin 31.2 PG (26-34); Monocytes Absolute Auto 500 /uL (0-900); Monocytes Percent Auto 7.5 % (3-14); Neutrophils Absolute Auto 4300 /uL (1500-7000); Neutrophils Percent Auto 64.4 % (50-75); Platelet Count 241 X10^3/uL (150-400); Red Blood Cell Count 4.95 X10^6/uL (4.5-5.9); Red Cell Distribution Width 13.6 % (11.6-14.8); White Blood Cell Count 6.6 X10^3/uL (4.5-11.0)
[2020-08-22 20:12] LABS: Prothrombin Time 11.8 SECONDS (10.1-12.7)
--- NOTE | 2020-08-22 20:12 | ED.NEUROSD ---
HPI - Neuro Symptoms/Deficit General Chief Complaint: Neuro Symptoms/Deficit Stated Complaint: r/o stroke Time Seen by Provider: 08/22/20 19:52 Source: patient and family Mode of arrival: Ambulatory Limitations: no limitations History of Present Illness HPI Narrative: 69-year-old male nonsmoker with history of untreated hypertension, GERD and hyperlipidemia presents with a family friend in the chief complaint of neurologic symptoms over the course of the day. He states at about 11:00 a.m. he developed a rather sudden onset dizziness, difficulty with ambulation and trouble finding words which lasted a few hours. He was seen and evaluated by the paramedics out on [place] and was encouraged to come to the emergency department. He came by POV outside of any interventional window. He states that the difficulty with ambulation was due to dizziness not focal neurologic deficits such as numbness, weakness or tingling of extremities. He denies any history of the same. He has a strong family history of stroke. He denies any history of migraine. He has had no fever or chills. He denies any recent dietary or medication change. He is largely improved and essentially at his baseline on arrival Onset (ago): hour(s) Location: speech, ataxia and altered History of same: No Severity: moderate Relieving factors: none Exacerbating factors: none Context: sudden onset On Anticoagulants: No Associated symptoms: confusion Treatments Prior to Arrival: none Related Data Home Medications Medication Instructions Recorded Confirmed Trintellix 20 mg PO DAILY 02/08/20 02/08/20 bupropion HCl 300 mg PO QAM 02/08/20 02/08/20 omeprazole 20 mg PO DAILY 02/08/20 02/08/20 simvastatin 20 mg PO BEDTIME 02/08/20 02/08/20 trazodone 100 mg PO BEDTIME PRN 02/08/20 02/08/20 Allergies Allergy/AdvReac Type Severity Reaction Status Date / Time No Known Drug Allergies Allergy Verified 08/22/20 20:04 Review of Systems Constitutional Constitutional: Denies chills, Denies fatigue, Denies fever(s), Denies frequent falls, Denies lethargy and Denies weakness Eyes Eyes: Denies change in vision, Denies eye discharge, Denies irritation and Denies loss of vision ENT Ears, Nose, Mouth, and Throat: Denies change in voice, Reports dizziness, Denies neck pain, Denies sore throat and Denies throat swelling Cardiovascular Cardiovascular: Denies chest pain, Denies irregular heart rhythm, Denies lightheadedness, Denies palpitations, Denies dyspnea, Denies dyspnea on exertion and Denies orthopnea Respiratory Respiratory: Denies cough, Denies dyspnea, Denies dyspnea on exertion and Denies wheezing Gastrointestinal Gastrointestinal: Denies abdominal pain, Denies change in bowel habits, Denies diarrhea, Denies nausea and Denies vomiting Musculoskeletal Musculoskeletal: Denies neck pain and Denies numbness Integumentary/Breasts Skin/Breast: Denies pruritus, Denies erythema, Denies rash and Denies wounds Neurologic Neurologic: Reports abnormal speech, Denies behavioral changes, Reports confusion, Reports dizziness, Denies frequent falls, Denies loss of vision, Denies numbness and Denies weakness Psychiatric Psychiatric: Denies anxiety, Denies behavioral changes, Reports confusion, Denies depression, Denies homicidal ideation and Denies suicidal ideation Endocrine Endocrine: Denies fatigue, Denies flushing and Denies palpitations Hematologic/Lymphatic Hematologic/Lymphatic: Denies easy bruising Allergic/Immunologic Allergic/Immunologic: Denies urticaria, Denies throat swelling and Denies wheezing Patient History Medical History Bipolar disorder (Acute) Dyspepsia (Acute) Hyperlipidemia (Acute) Surgical History History of appendectomy (Acute) Family History Mother TIA (transient ischemic attack) Kidney disease Father Cancer Sister No significant medical problems Social History household members: spouse Smoking Status: Never smoker alcohol intake: never Smoking Status: Never smoker Substance Use Type: marijuana Exam Narrative Exam Narrative: GENERAL: [69] year old patient appears stated age. Well-nourished, well-developed patient, in mild distress. HEAD: Atraumatic. Normocephalic. EYES: Pupils equal round and reactive. Extraocular motions intact. No scleral icterus. No injection or drainage. ENT: Nose without bleeding, purulent drainage. Throat without erythema, tonsillar hypertrophy or exudate. Airway patent. NECK: Trachea midline. Non tender CARDIOVASCULAR: Regular rate and rhythm without murmurs, gallops, or rubs. RESPIRATORY: Clear to auscultation. Breath sounds equal bilaterally. No wheezes, rales, or rhonchi. GASTROINTESTINAL: Abdomen soft, non-tender, nondistended. EXTREMITIES: No edema or joint tenderness. BACK: Nontender without deformity or crepitance. No flank tenderness. NEURO: AOx3. SKIN: No rash or erythema of visible areas Initial Vital Signs Initial Vital Signs: Vital Signs Pulse Rate 52 L 08/22/20 20:00 Respiratory Rate 16 08/22/20 20:00 Blood Pressure 171/79 H 08/22/20 20:00 Pulse Oximetry 98 08/22/20 20:00 Scores NIH Stroke Scale Level of Conciousness: Alert, keenly responsive Ask month/age: Answers both questions correctly. Open/close eyes, close hand: Performs both tasks correctly Best gaze horizontal: Normal Visual moore: No visual loss Facial palsy: Normal symetrical movement Left arm drift: No drift for full 10 sec Right arm drift: No drift for full 10 sec Left leg drift: No drift for full 5 sec Right leg drift: No drift for full 5 sec Limb ataxia: Absent Sensory on face/arms/legs: Normal, no sensory loss Best language: No aphasia, normal Dysarthria: Normal Extinction or inattention: No abnormality Total NIH Stroke scale score: 0 Course Orders Ordered: ED Orders 08/22/20 20:00 Complete Blood Count AUTO DIFF Stat Comprehensive Metabolic Panel Stat Partial Thromboplastin Time Stat Prothrombin Time INR Stat Troponin & CK Cardiac Panel Stat 08/22/20 20:02 CT Stroke Stat XR chest 1V Stat EKG-12 Lead Stat 08/22/20 20:05 CT angio head and neck Stat 08/22/20 20:31 Urine Drug Screen, Rapid Stat 08/22/20 22:14 COVID19 -ED/INPAT/OR/L&D Stat Discontinued Medications Aspirin (Aspirin Chew) 324 mg PO NOW ONE Stop: 08/22/20 20:06 Last Admin: 08/22/20 20:24 Dose: 324 mg Documented by: CARLA Consultations Consultation #1: call to [facility] to gain placement at a facility with access neurology and neurosurgery. Dr. Damon was very helpful in finding placement for patient at [facility]. Vital Signs Vital signs: Vital Signs - 8 hr 08/22/20 20:00 08/22/20 20:02 08/22/20 20:31 Pulse Rate 52 L 53 L 62 Respiratory Rate 16 22 Blood Pressure 171/79 H Pulse Oximetry 98 98 99 08/22/20 21:00 08/22/20 21:17 08/22/20 21:30 Pulse Rate 52 L 54 L 52 L Respiratory Rate 22 23 24 Blood Pressure 169/92 H 145/79 H Pulse Oximetry 98 97 97 08/22/20 22:00 08/22/20 22:01 08/22/20 22:30 Pulse Rate 56 L 57 L 58 L Respiratory Rate 23 24 21 Blood Pressure 170/78 H 161/74 H Pulse Oximetry 97 97 95 08/22/20 23:00 08/22/20 23:30 08/23/20 00:00 Pulse Rate 54 L 55 L 54 L Respiratory Rate 21 21 20 Blood Pressure 166/75 H 148/69 H 143/65 H Pulse Oximetry 95 96 96 08/23/20 00:30 08/23/20 01:00 08/23/20 01:30 Pulse Rate 56 L 61 60 Respiratory Rate 20 20 20 Blood Pressure Pulse Oximetry 97 97 96 08/23/20 01:47 Pulse Rate Respiratory Rate Blood Pressure 167/78 H Pulse Oximetry MDM - Neuro Symptoms/Deficit Lab Data Result diagrams: 08/22/20 20:00 08/22/20 20:00 Labs: Lab Results 08/22/20 08/22/20 08/22/20 Range/Units 20:00 20:00 20:00 WBC 6.6 (4.5-11.0) X10^3/uL RBC 4.95 (4.5-5.9) X10^6/uL Hgb 15.4 (13.5-17.5) g/dL Hct 46.0 (41-53) % MCV 93.0 (80-100) fL MCH 31.2 (26-34) PG MCHC 33.5 (30-36) % RDW 13.6 (11.6-14.8) % Plt Count 241 (150-400) X10^3/uL Neut % (Auto) 64.4 (50-75) % Lymph % (Auto) 26.7 (25-40) % [place] % (Auto) 7.5 (3-14) % Eos % (Auto) 0.7 L (2-4) % Baso % (Auto) 0.7 (0-2) % Neut # (Auto) 4300 (5963-6364) /uL Lymph # (Auto) 1800 (0790-1134) /uL [place] # (Auto) 500 (0-900) /uL Eos # (Auto) 0 (0-450) /uL Baso # (Auto) 0 (0-100) /uL PT 11.8 (10.1-12.7) SECONDS INR 1.0 (0.9-1.3) APTT 31 (26.4-36.2) SECONDS Sodium 137 (137-145) mmol/L Potassium 4.2 (3.4-5.1) mmol/L Chloride 102 (98-107) mmol/L Carbon Dioxide 28 (22-32) mmol/L BUN 19 (9-20) mg/dL Creatinine 0.71 (0.66-1.25) mg/dL Estimated GFR > 60.0 (>60) mL/min BUN/Creatinine Ratio 26.8 H (6-22) Glucose 97 (80-110) mg/dL Calcium 9.1 (8.4-10.2) mg/dL Total Bilirubin 0.8 (0.2-1.3) mg/dL AST 41 (17-59) IU/L ALT 32 (<50) IU/L Alkaline Phosphatase 54 (38-126) U/L Total Creatine Kinase 117 (55-170) U/L CK-MB (CK-2) 1.55 (<2.37) ng/mL CK-MB (CK-2) Rel Index 1.3 L (1.5-5.0) % Troponin I < 0.012 (0.01-0.034) ng/mL Total Protein 7.5 (6.3-8.2) g/dL Albumin 4.2 (3.5-5.0) g/dL Globulin 3.3 (1.7-4.1) g/dL Albumin/Globulin Ratio 1.3 (1.0-2.8) U Opiates 300ng/mL cut (Negative) Ur Oxycodone Screen (Negative) Urine Methadone Screen (Negative) Ur Barbiturates Screen (Negative) U Tricyclic Antidepress (Negative) Ur Phencyclidine Scrn (Negative) Ur Amphetamines Screen (Negative) U Methamphetamines Scrn (Negative) Ur MDMA Scrn (Ecstasy) (Negative) U Benzodiazepines Scrn (Negative) Urine Cocaine Screen (Negative) U Marijuana (THC) Screen (Negative) COVID-19 PCR (Negative) 08/22/20 08/22/20 Range/Units 20:31 22:14 WBC (4.5-11.0) X10^3/uL RBC (4.5-5.9) X10^6/uL Hgb (13.5-17.5) g/dL Hct (41-53) % MCV (80-100) fL MCH (26-34) PG MCHC (30-36) % RDW (11.6-14.8) % Plt Count (150-400) X10^3/uL Neut % (Auto) (50-75) % Lymph % (Auto) (25-40) % [place] % (Auto) (3-14) % Eos % (Auto) (2-4) % Baso % (Auto) (0-2) % Neut # (Auto) (3743-9640) /uL Lymph # (Auto) (5747-8894) /uL [place] # (Auto) (0-900) /uL Eos # (Auto) (0-450) /uL Baso # (Auto) (0-100) /uL PT (10.1-12.7) SECONDS INR (0.9-1.3) APTT (26.4-36.2) SECONDS Sodium (137-145) mmol/L Potassium (3.4-5.1) mmol/L Chloride (98-107) mmol/L Carbon Dioxide (22-32) mmol/L BUN (9-20) mg/dL Creatinine (0.66-1.25) mg/dL Estimated GFR (>60) mL/min BUN/Creatinine Ratio (6-22) Glucose (80-110) mg/dL Calcium (8.4-10.2) mg/dL Total Bilirubin (0.2-1.3) mg/dL AST (17-59) IU/L ALT (<50) IU/L Alkaline Phosphatase (38-126) U/L Total Creatine Kinase (55-170) U/L CK-MB (CK-2) (<2.37) ng/mL CK-MB (CK-2) Rel Index (1.5-5.0) % Troponin I (0.01-0.034) ng/mL Total Protein (6.3-8.2) g/dL Albumin (3.5-5.0) g/dL Globulin (1.7-4.1) g/dL Albumin/Globulin Ratio (1.0-2.8) U Opiates 300ng/mL cut Negative (Negative) Ur Oxycodone Screen Negative (Negative) Urine Methadone Screen Negative (Negative) Ur Barbiturates Screen Negative (Negative) U Tricyclic Antidepress Negative (Negative) Ur Phencyclidine Scrn Negative (Negative) Ur Amphetamines Screen Negative (Negative) U Methamphetamines Scrn Negative (Negative) Ur MDMA Scrn (Ecstasy) Negative (Negative) U Benzodiazepines Scrn Negative (Negative) Urine Cocaine Screen Negative (Negative) U Marijuana (THC) Screen Positive H (Negative) COVID-19 PCR Negative (Negative) Point of Care Testing Glucose POC 103 Urine Dip Bedside Urine Glucose Negative Bedside Urine Bilirubin - Negative Bedside Urine Ketone - Negative Urine Specific [place] 1.010 Bedside Urine Occult Blood - Negative Bedside Urine pH 7.5 Bedside Urine Protein - Negative Bedside Urine Urobilinogen - Negative Bedside Urine Nitrite - Negative Bedside Urine Leukocytes - Negative Esterase Imaging Data CT scan - head: Radiologist's Impression: [place] [address] CT Scan Report Signed Patient: Memo Escobedo KMR#: [id number] : 3Acct:[id number] Age/Sex: 69 / MDate of Service: 08/22/20 Loc: ED Accession Number: [id number] Procedure: CT Stroke Ordering Provider: Schuyler Payne D.O. PROCEDURE: CT STROKE INDICATIONS: neuro changes NON TPA CANDIDATE TECHNIQUE: Noncontrast 4.5 mm thick angled axial sections acquired from the foramen magnum to the vertex, with coronal reformats. For radiation dose reduction, the following was used: automated exposure control, adjustment of mA and/or kV according to patient size. COMPARISON: None. FINDINGS: Image quality: Excellent. CSF spaces: Basal cisterns are patent. No extra-axial fluid collections. The ventricles are symmetric in size and shape. Brain: No intracranial bleeds or masses. There is cerebral volume loss for age, with resultant ventricular and sulcal prominence. There are periventricular and deep white matter chronic small vessel ischemic changes. 2.5 centimeter hypodensity noted in the left occipital lobe with surrounding edema and may represent subacute infarct with sciatic arcus edema versus neoplastic process with vasogenic edema. There is intracranial internal carotid artery atherosclerosis. Skull and face: Calvarium and visualized facial bones appear intact, without suspicious lesions. Sinuses: Visualized sinuses and mastoids are clear. IMPRESSION: 1. Left occipital hypodensity with surrounding edema which could represent subacute infarct versus less likely neoplastic process. 2. No intracranial hemorrhage. Findings discussed with Dr. Payne on August 22, 2020 at 8:39 p.m. This study fulfills neurological imaging criteria for inclusion or exclusion of acute stroke therapies based on available published neurological guidelines. Dictated by: Kasey Larsen MD, PhD on 08/22/2020 at 20:35 Approved by: Kasey Larsen MD, PhD on 08/22/2020 at 20:39 CTA Head/Neck: Radiologist's Impression: [place] [address] CT Scan Report Signed Patient: Memo Escobedo KMR#: [id number] : 3Acct:[id number] Age/Sex: 69 / MDate of Service: 08/22/20 Loc: ED Accession Number: [id number] Procedure: CT angio head and neck Ordering Provider: Schuyler Payne D.O. PROCEDURE: CT ANGIO HEAD AND NECK INDICATIONS: stroke symptoms resolved TECHNIQUE: Pre-contrast 4.5 mm thick sections acquired from the foramen magnum to the vertex. After the administration of intravenous contrast, 1 mm thick sections acquired from the aortic arch through the [place]. Post-contrast 4.5 mm thick sections then re-acquired from the foramen magnum to the vertex. 3-dimensional wzwgvho-bqhogqtfe-yyxqqvkhrw (MIP) and/or volume rendering reformats were acquired of the central intracranial vasculature and neck separately. COMPARISON: [facility], CT, CT STROKE, 08/22/2020, 20:13. FINDINGS: Image quality: Excellent. BRAIN: CSF spaces: Ventricles are normal in size and shape. Basal cisterns are patent. No extra-axial fluid collections. Brain: No midline shift. 2.5 x 2.3 centimeter ring enhancing lesion noted in the left occipital lobe with surrounding edema concerning for either primary brain malignancy or solitary metastatic lesion.. [place]-white matter interface appears intact. Skull and face: Calvarium and facial bones appear intact, without suspicious lesions. Orbits appear normal. Sinuses: Small mucous retention cyst versus polyp noted in the right maxillary sinus. mastoids are clear. HEAD CT ANGIOGRAPHY: Anterior circulation: Intracranial internal carotid arteries are normal in flow. Atherosclerotic calcifications noted in the cavernous and clinoid segments of the internal carotid arteries bilaterally which causes mild mass narrowing of the vessels. The flow within the paired anterior cerebral arteries is normal and symmetric. The flow within the middle cerebral arteries is normal and symmetric. The anterior communicating artery is seen. No aneurysms are seen. Posterior circulation: Visualized portions of the vertebral arteries demonstrate normal caliber, and join to form a normal appearing basilar artery. Flow within the posterior cerebral arteries is normal and symmetric. 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 No aneurysms are seen. Dural sinuses demonstrate normal postcontrast enhancement NECK CT ANGIOGRAPHY: Carotid system: The great vessels demonstrate a conventional anatomy as they arise from the aortic arch. The origins of the common carotid arteries appear patent. The common carotid arteries demonstrate normal caliber and courses. Calcified and soft atherosclerotic plaque noted in the origins of the internal carotid arteries which causes moderate, 50-69% stenosis of the origin right internal carotid artery and mild, less than 50% stenosis of the origin of the left internal carotid artery. Posterior circulation: Calcified atherosclerotic plaque noted in the origins of the vertebral arteries bilaterally which causes mild stenosis of the right vertebral artery and moderate stenosis of the left vertebral artery. The more superior extracranial portions of both vertebral arteries also demonstrate normal courses and calibers. They join to form a normal appearing basilar artery. Soft tissues: Visualized neck soft tissues demonstrate no suspicious abnormalities. Bones: No suspicious bony lesions. Spine degenerative disc disease and facet arthropathy. Visualized cervical spine appears normally aligned. IMPRESSION: 1. 2.5 x 2.3 centimeter brain and seen mass in the left occipital lobe highly suspicious for primary brain neoplasm versus solitary metastatic lesion. 2. Moderate, 50-69% stenosis of the origin the right internal carotid artery. 3. Mild, less than 50% stenosis of the origin of the left internal carotid artery. 4. Mild stenosis of the origin of the right vertebral artery and moderate stenosis of the origin of the left vertebral artery. Any quantitative measurements of stenosis were performed using NASCET criteria. Dictated by: Kasey Larsen MD, PhD on 08/22/2020 at 21:03 Approved by: Ksaey Larsen MD, PhD on 08/22/2020 at 21:09 Discharge Plan Departure Patient Disposition: [facility] Clinical Impression: Brain TIA, Brain mass Prescriptions: No Action trazodone 100 mg Tablet 100 mg PO BEDTIME PRN (Reason: Sleep) RF: 0 simvastatin 20 mg Tablet 20 mg PO BEDTIME RF: 0 omeprazole 20 mg Capsule,Delayed Release(Dr/Ec) 20 mg PO DAILY RF: 0 bupropion HCl 300 mg Tablet Extended Release 24 Hr 300 mg PO QAM RF: 0 Trintellix 20 mg Tablet 20 mg PO DAILY RF: 0
[2020-08-22 20:15] LABS: PTT Partial Thromboplastin Tim 31 SECONDS (26.4-36.2)
[2020-08-22 20:17] LABS: Alanine Aminotransferase 32 IU/L (<50); Albumin 4.2 g/dL (3.5-5.0); Albumin Globulin Ratio 1.3 (1.0-2.8); Alkaline Phosphatase 54 U/L (38-126); Aspartate Aminotransferase 41 IU/L (17-59); BUN Creatinine Ratio 26.8 (6-22); Bilirubin Total 0.8 mg/dL (0.2-1.3); Blood Urea Nitrogen 19 mg/dL (9-20); Calcium 9.1 mg/dL (8.4-10.2); Carbon Dioxide 28 mmol/L (22-32); Chloride 102 mmol/L (98-107); Creatine Kinase 117 U/L (55-170); Estimated Glomerular Filt Rate > 60.0 mL/min (>60); Globulin 3.3 g/dL (1.7-4.1); Glucose 97 mg/dL (80-110); Sodium 137 mmol/L (137-145); Total Protein 7.5 g/dL (6.3-8.2)
[2020-08-22 20:18] LABS: HEMOLYSIS 73 (0-50)
[2020-08-22 20:19] LABS: Potassium 4.2 mmol/L (3.4-5.1)
[2020-08-22] MEDS: ASPIRIN 81 MG CHEW TAB 324 MG PO (20:24)
[2020-08-22 20:29] LABS: Troponin I < 0.012 ng/mL (0.01-0.034)
[2020-08-22 20:32] LABS: CKMB % Relative Index 1.3 % (1.5-5.0); Creatine Kinase MB 1.55 ng/mL (<2.37)
[2020-08-22 20:59] LABS: UR Morphine/Opiate cutoff 300 Negative (Negative); Ur Creatinine Normal (Normal); Ur Specific Gravity Normal (Normal); Urine Amphetamines Negative (Negative); Urine Barbiturates Negative (Negative); Urine Benzodiazepines Negative (Negative); Urine Cocaine Negative (Negative); Urine MDMA Negative (Negative); Urine Methadone Negative (Negative); Urine Methamphetamines Negative (Negative); Urine Oxycodone Negative (Negative); Urine Phencyclidine Negative (Negative); Urine Tetrahydrocannabinol Positive (Negative); Urine Tricyclic Antidepressant Negative (Negative); Urine pH Normal (Normal)
[2020-08-22 22:52] LABS: COVID19 -Nasal RAPID Negative (Negative)
[2020-08-23] VITALS: BP 143/65; PULSE 54; RESP 20; O2SAT 96
[2020-08-23 00:30] VITALS: PULSE 56; RESP 20; O2SAT 97
[2020-08-23 01:00] VITALS: PULSE 61; RESP 20; O2SAT 97
[2020-08-23 01:30] VITALS: PULSE 60; RESP 20; O2SAT 96
[2020-08-23 01:47] VITALS: BP 167/78
== END 2020-08-23 02:35 | disposition short-term general hospital (02) ==
PROVIDERS: Emergency Provider Emergency Medicine
DX: G45.9 Transient cerebral ischemic attack, unspecified (principal); G93.89 Other specified disorders of brain; I10 Essential (primary) hypertension; E78.5 Hyperlipidemia, unspecified; K21.9 Gastro-esophageal reflux disease without esophagitis
CPT/HCPCS: 36415; 70450; 70496; 70498; 71045; 80053; 80305; 81003; 82550; 82553; 82962; 84484; 85025; 85610; 85730; 87635; 93005; 93010; 99285

== ENCOUNTER 2022-08-28 14:52 | Emergency (ER) | payer OTHER, SELFPAY ==
[2022-08-28] VITALS (14 sets, daily range): BP systolic 127–171; BP diastolic 59–79; PULSE 47–64; RESP 12–22; TEMP 36.7; O2SAT 95–99
--- NOTE | 2022-08-28 | DI.CT.S_ITS ---
PROCEDURE: CT FACIAL BONES WO CON INDICATIONS: FELL TECHNIQUE: Noncontrast 2.5 mm thick axial images acquired from the mandible through the frontal sinuses, with coronal and sagittal reformatting. For radiation dose reduction, the following was used: automated exposure control, adjustment of mA and/or kV according to patient size. COMPARISON: [facility], CT, CT HEAD/BRAIN WO CON, 08/28/2022, 15:28. [facility], CT, CT CERVICAL SPINE WO CON, 08/28/2022, 15:28. FINDINGS: Image quality: Excellent. Bones and teeth: Mildly displaced nasal bone fractures are seen. No associated nasal septal fracture is seen. Chronic S shaped nasal septal deviation can be seen. Orbital sheikh are intact. Sinus sheikh show no fracture or deformity. Visualized portions of the mandible demonstrate no fractures or subluxation. Zygomatic arches are intact. Pterygoid plates are intact. Visualized portions of the skull base and auditory canals are intact. Left-sided craniotomy change is partially seen. Sinuses: Moderate mucosal thickening is seen within the left maxillary sinus. Minimal mucosal thickening is seen within the right ethmoid air cells. There is a mucous retention cyst seen involving the right maxillary sinus. The paranasal sinuses are otherwise relatively clear. Soft tissues: Mild soft tissue swelling is seen involving the nose, with soft tissue laceration. Vascular: Visualized vascular structures appear normal in the absence of contrast. Bony vascular foramina and canals are intact. IMPRESSION: Nasal bone fractures, with associated soft tissue nasal laceration. Dictated by: Olman Olvera M.D. on 08/28/2022 at 14:56 Approved by: Olman Olvera M.D. on 08/28/2022 at 14:58
--- NOTE | 2022-08-28 15:09 | DI.CT.S_ITS ---
PROCEDURE: CT HEAD/BRAIN WO CON INDICATIONS: trauma TECHNIQUE: Noncontrast 4.5 mm thick angled axial sections acquired from the foramen magnum to the vertex, with coronal and sagittal reformats. For radiation dose reduction, the following was used: automated exposure control, adjustment of mA and/or kV according to patient size. COMPARISON: [facility], CT, CT CERVICAL SPINE WO CON, 08/28/2022, 15:28. [facility], CT, CT STROKE, 08/22/2020, 20:13. [facility], CT, CT ANGIO HEAD AND NECK, 08/22/2020, 20:16. FINDINGS: Image quality: Excellent. CSF spaces: Basal cisterns are patent. No extra-axial fluid collections. Mild ex vacuo dilatation can be seen of the posterior aspect of the left lateral ventricle. Brain: On the left, there is a temporoparietal region resection seen, with apparent calcification along the lateral aspect of the resection bed. Surrounding encephalomalacia can be seen. No intracranial bleeds or masses. There is cerebral volume loss for age, with resultant ventricular and sulcal prominence. There are periventricular and deep white matter chronic small vessel ischemic changes. There is intracranial internal carotid artery atherosclerosis. Skull and face: Left-sided craniotomy changes are seen. Calvarium and visualized facial bones appear intact, without suspicious lesions. Sinuses: Visualized sinuses and mastoids are clear. IMPRESSION: No acute intracranial hemorrhage is seen. Interval postoperative change seen on the left, with volume loss, encephalomalacia, calcification, and ex vacuo dilatation of the posterior aspect of the left lateral ventricle. Dictated by: Olman Olvera M.D. on 08/28/2022 at 14:40 Approved by: Olman Olvera M.D. on 08/28/2022 at 14:43
--- NOTE | 2022-08-28 15:09 | DI.CT.S_ITS ---
PROCEDURE: CT CERVICAL SPINE WO CON INDICATIONS: trauma TECHNIQUE: Noncontrast 3 mm thick sections acquired from the skull base to the T4 level. Sagittal and coronal reformats were then constructed. For radiation dose reduction, the following was used: automated exposure control, adjustment of mA and/or kV according to patient size. COMPARISON: [facility], CT, CT ANGIO HEAD AND NECK, 08/22/2020, 20:16. [facility], CT, CT STROKE, 08/22/2020, 20:13. [facility], CT, CT HEAD/BRAIN WO CON, 08/28/2022, 15:28. [facility], CT, CT FACIAL BONES WO CON, 08/28/2022, 15:28. FINDINGS: Image quality: This examination is somewhat limited by quantum mottle artifact. Bones: No fractures or dislocations. Visualized superior ribs are intact. Kgns-sl-gzdssnjy disc space narrowing is seen at C5-C6. There is moderate to severe disc space narrowing at C6-C7. Posteriorly directed endplate osteophytes are seen, which are worst at the C6-C7 level. Soft tissues: Prevertebral soft tissues are normal in thickness. No paravertebral hematomas. No apical pneumothoraces. IMPRESSION: Negative for acute fracture. Cervical spine degenerative changes are seen, which are worst at C6-C7. Dictated by: Olman Olvera M.D. on 08/28/2022 at 14:54 Approved by: Olman Olvera M.D. on 08/28/2022 at 14:55
--- NOTE | 2022-08-28 15:52 | DI.RAD.S_ITS ---
PROCEDURE: XR CHEST 1V INDICATIONS: Flu like symptoms TECHNIQUE: One view of the chest was acquired. COMPARISON: [facility], CR, XR CHEST 1V, 08/22/2020, 20:42. FINDINGS: Surgical changes and devices: None. Lungs and pleura: Ill-defined airspace opacities are seen in bilateral lower lung moore more prominent on the left side. No pleural effusions or pneumothorax. Mediastinum: Mediastinal contours appear normal. Heart size is normal. Bones and chest wall: No suspicious bony lesions. Overlying soft tissues appear unremarkable. IMPRESSION: Finding is concerning for bilateral lower lobe patchy infiltrates. No pleural effusion or pneumothorax. Dictated by: Elmer Nick M.D. on 08/28/2022 at 16:26 Approved by: Elmer Nick M.D. on 08/28/2022 at 16:27
--- NOTE | 2022-08-28 15:58 | ED_ITS ---
HPI - General Adult General Chief complaint: Trauma Stated complaint: Fell on concrete, Hit head Time Seen by Provider: 08/28/22 15:41 Source: patient and family Mode of arrival: Wheelchair Related Data Home Medications Medication Instructions Recorded Confirmed bupropion HCl 300 mg 24 hr tablet, 300 mg PO QAM 02/08/20 02/08/20 extended release omeprazole 20 mg capsule,delayed 20 mg PO DAILY 02/08/20 02/08/20 release simvastatin 20 mg tablet 20 mg PO BEDTIME 02/08/20 02/08/20 trazodone 100 mg tablet 100 mg PO BEDTIME PRN Sleep 02/08/20 02/08/20 vortioxetine 20 mg tablet 20 mg PO DAILY 02/08/20 02/08/20 (Trintellix) Allergies Allergy/AdvReac Type Severity Reaction Status Date / Time No Known Drug Allergies Allergy Verified 08/22/20 20:04 Patient History Medical History (Updated 09/07/20 @ 00:00 by ) Bipolar disorder Dyspepsia Hyperlipidemia Surgical History History of appendectomy Family History Mother TIA (transient ischemic attack) Kidney disease Father Cancer Sister No significant medical problems Social History household members: spouse Smoking Status: Never smoker alcohol intake: never Smoking Status: Never smoker Substance Use Type: marijuana Exam Initial Vital Signs Initial Vital Signs: Vital Signs Temperature 98.1 F 08/28/22 15:05 Pulse Rate 49 L 08/28/22 15:05 Respiratory Rate 18 08/28/22 15:05 Blood Pressure 145/67 H 08/28/22 15:05 Pulse Oximetry 99 08/28/22 15:05 Oxygen Delivery Method 08/28/22 15:05 Course Orders Ordered: ED Orders 08/28/22 15:09 CT cervical spine wo con Stat CT head/brain wo con Stat 08/28/22 15:45 Type and Screen Stat 08/28/22 15:52 XR chest 1V Stat 08/28/22 16:02 EKG-12 Lead Stat 08/28/22 16:08 Complete Blood Count AUTO DIFF Stat Comprehensive Metabolic Panel Stat Lipase Stat Partial Thromboplastin Time Stat Prothrombin Time INR Stat 08/28/22 16:43 COVID19 -Nasal RAPID/Pre-Proc Stat Hydromorphone HCl (Hydromorphone 0.5 Mg Inj) 0.5 mg IV Q15MIN PRN PRN Reason: Pain, Last Admin: 08/28/22 16:49 Dose: 0.5 mg Documented By: AMU Discontinued Medications Lorazepam (Lorazepam 2 Mg/Ml Inj) 1 mg IV NOW ONE Stop: 08/28/22 15:59 Last Admin: 08/28/22 16:10 Dose: 1 mg Documented By: ADK Vital Signs Vital signs: Vital Signs - 8 hr 08/28/22 15:05 08/28/22 16:43 08/28/22 17:00 Temperature 98.1 F Pulse Rate 49 L 56 L 48 L Respiratory Rate 18 22 12 Blood Pressure 145/67 H Pulse Oximetry 99 96 95 Oxygen Delivery Method Room Air 08/28/22 17:01 08/28/22 17:01 08/28/22 17:30 Temperature Pulse Rate 48 L 47 L Respiratory Rate 16 14 Blood Pressure 136/60 Pulse Oximetry 95 98 Oxygen Delivery Method 08/28/22 17:31 08/28/22 17:31 Temperature Pulse Rate 47 L Respiratory Rate 13 Blood Pressure 155/74 H Pulse Oximetry 97 Oxygen Delivery Method Medical Decision Making Lab Data Result diagrams: 08/28/22 16:08 08/28/22 16:08 Labs: Lab Results 08/28/22 08/28/22 08/28/22 Range/Units 16:08 16:08 16:08 WBC 7.9 (4.5-11.0) X10^3/uL RBC 4.23 L (4.5-5.9) X10^6/uL Hgb 14.3 (13.5-17.5) g/dL Hct 41.1 (41-53) % MCV 97.2 (80-100) fL MCH 33.7 (26-34) PG MCHC 34.7 (30-36) % RDW 13.8 (11.6-14.8) % Plt Count 210 (150-400) X10^3/uL Neut % (Auto) 84.8 H (50-75) % Lymph % (Auto) 8.5 L (25-40) % [place] % (Auto) 6.3 (3-14) % Eos % (Auto) 0.1 L (2-4) % Baso % (Auto) 0.3 (0-2) % Neut # (Auto) 6700 (5398-7800) /uL Lymph # (Auto) 700 L (9339-2992) /uL [place] # (Auto) 500 (0-900) /uL Eos # (Auto) 0 (0-450) /uL Baso # (Auto) 0 (0-100) /uL PT 11.6 (10.1-12.7) SECONDS INR 1.0 (0.9-1.3) APTT 25 L (26-36) SECONDS Sodium 135 L (137-145) mmol/L Potassium 4.3 (3.4-5.1) mmol/L Chloride 103 (98-107) mmol/L Carbon Dioxide 24 (22-32) mmol/L BUN 16 (9-20) mg/dL Creatinine 0.80 (0.66-1.25) mg/dL Estimated GFR > 60 (>60) mL/min BUN/Creatinine Ratio 20.0 (6-22) Glucose 107 (80-110) mg/dL Calcium 9.1 (8.4-10.2) mg/dL Total Bilirubin 0.6 (0.2-1.3) mg/dL AST 36 (17-59) IU/L ALT 32 (<50) IU/L Alkaline Phosphatase 40 (38-126) U/L Total Protein 7.3 (6.3-8.2) g/dL Albumin 4.1 (3.5-5.0) g/dL Globulin 3.2 (1.7-4.1) g/dL Albumin/Globulin Ratio 1.3 (1.0-2.8) Lipase 67 (23-300) U/L Imaging Data CT scan - head: Radiologist's Impression: FINDINGS:? Image quality:? Excellent.? ? CSF spaces:? Basal cisterns are patent.? No extra-axial fluid collections.? Mild ex vacuo dilatation can be seen of the posterior aspect of the left lateral ventricle. ? Brain:? On the left, there is a temporoparietal region resection seen, with apparent calcification along the lateral aspect of the resection bed.? Surrounding encephalomalacia can be seen. ? No intracranial bleeds or masses.? There is cerebral volume loss for age, with resultant ventricular and sulcal prominence.? There are periventricular and deep white matter chronic small vessel ischemic changes.? There is intracranial internal carotid artery atherosclerosis.? ? Skull and face:? Left-sided craniotomy changes are seen.? Calvarium and visualized facial bones appear intact, without suspicious lesions.? ? Sinuses:? Visualized sinuses and mastoids are clear.? ? IMPRESSION:? No acute intracranial hemorrhage is seen.? ? Interval postoperative change seen on the left, with volume loss, encephalomalacia, calcification, and ex vacuo dilatation of the posterior aspect of the left lateral ventricle. ? ? Dictated by: Olman Olvera M.D. on 08/28/2022 at 14:40 ? ? CT - cervical spine: Radiologist's Impression: FINDINGS:? Image quality:? This examination is somewhat limited by quantum mottle artifact.? ? Bones:? No fractures or dislocations.? Visualized superior ribs are intact.? ? [id number] disc space narrowing is seen at C5-C6.? There is moderate to severe disc space narrowing at C6-C7.? Posteriorly directed endplate osteophytes are seen, which are worst at the C6-C7 level. ? Soft tissues:? Prevertebral soft tissues are normal in thickness.? No paravertebral hematomas.? No apical pneumothoraces.? ? ? IMPRESSION:? Negative for acute fracture. ? Cervical spine degenerative changes are seen, which are worst at C6-C7.? Dictated by: Olman Olvera M.D. on 08/28/2022 at 14:54 ? ? Discharge Plan Departure Prescriptions: No Action trazodone 100 mg Tablet 100 mg PO BEDTIME PRN (Reason: Sleep) simvastatin 20 mg Tablet 20 mg PO BEDTIME omeprazole 20 mg Capsule,Delayed Release(Dr/Ec) 20 mg PO DAILY bupropion HCl 300 mg Tablet Extended Release 24 Hr 300 mg PO QAM Trintellix 20 mg Tablet 20 mg PO DAILY
[2022-08-28] MEDS: LORazepam 2 MG/ML INJ 1 MG IV (16:10)
[2022-08-28 16:38] LABS: Add Manual Diff / Slide Review NO; Basophils Absolute Auto 0 /uL (0-100); Basophils Percent Auto 0.3 % (0-2); Eosinophils Absolute Auto 0 /uL (0-450); Eosinophils Percent Auto 0.1 % (2-4); Hematocrit 41.1 % (41-53); Hemoglobin 14.3 g/dL (13.5-17.5); Lymphocytes Absolute Auto 700 /uL (1100-4500); Lymphocytes Percent Auto 8.5 % (25-40); Mean Corpuscular HGB Conc 34.7 % (30-36); Mean Corpuscular Hemoglobin 33.7 PG (26-34); Mean Corpuscular Volume 97.2 fL (80-100); Monocytes Absolute Auto 500 /uL (0-900); Monocytes Percent Auto 6.3 % (3-14); Neutrophils Absolute Auto 6700 /uL (1500-7000); Neutrophils Percent Auto 84.8 % (50-75); Platelet Count 210 X10^3/uL (150-400); Red Blood Cell Count 4.23 X10^6/uL (4.5-5.9); Red Cell Distribution Width 13.8 % (11.6-14.8); White Blood Cell Count 7.9 X10^3/uL (4.5-11.0)
[2022-08-28] MEDS: HYDROMORPHONE 0.5 MG INJ IV (16:49)
[2022-08-28 16:54] LABS: Prothrombin Time 11.6 SECONDS (10.1-12.7)
[2022-08-28 16:55] LABS: PTT Partial Thromboplastin Tim 25 SECONDS (26-36)
[2022-08-28 17:02] LABS: Alanine Aminotransferase 32 IU/L (<50); Albumin 4.1 g/dL (3.5-5.0); Albumin Globulin Ratio 1.3 (1.0-2.8); Alkaline Phosphatase 40 U/L (38-126); Aspartate Aminotransferase 36 IU/L (17-59); Bilirubin Total 0.6 mg/dL (0.2-1.3); Blood Urea Nitrogen 16 mg/dL (9-20); Calcium 9.1 mg/dL (8.4-10.2); Carbon Dioxide 24 mmol/L (22-32); Chloride 103 mmol/L (98-107); Estimated Glomerular Filt Rate > 60 mL/min (>60); Globulin 3.2 g/dL (1.7-4.1); Glucose 107 mg/dL (80-110); HEMOLYSIS 24 (0-50); Lipase 67 U/L (23-300); Potassium 4.3 mmol/L (3.4-5.1); Sodium 135 mmol/L (137-145); Total Protein 7.3 g/dL (6.3-8.2)
--- NOTE | 2022-08-28 19:07 | ED.FALL ---
HPI - Fall General Chief Complaint: Trauma Stated Complaint: Fell on concrete, Hit head Time Seen by Provider: 08/28/22 15:41 Source: patient and family Mode of arrival: Wheelchair History of Present Illness HPI Narrative: 71-year-old male nonsmoker with history of glioblastoma status post chemo, radiation and surgical resection presents with his in the chief complaint of a mechanical ground level fall resulting in head and facial injuries earlier today. He had been in his normal state of health and denies any obvious prodromal symptoms such as dizziness, weakness or lightheadedness. He likely did have a brief loss of consciousness and states that he got his feet caught up and fell forward striking his forehead, nose and landing on his knees. He is had no vomiting and is at his neurologic baseline per was at the bedside. He has some anterior chest discomfort and an abrasion overlying his sternum but denies any difficulty breathing or hemoptysis. He is had no recent changes in medications or diet. He is activated as a modified trauma given age and suspected injury Related Data Home Medications Medication Instructions Recorded Confirmed bupropion HCl 300 mg 24 hr tablet, 300 mg PO QAM 02/08/20 02/08/20 extended release omeprazole 20 mg capsule,delayed 20 mg PO DAILY 02/08/20 02/08/20 release simvastatin 20 mg tablet 20 mg PO BEDTIME 02/08/20 02/08/20 trazodone 100 mg tablet 100 mg PO BEDTIME PRN Sleep 02/08/20 02/08/20 vortioxetine 20 mg tablet 20 mg PO DAILY 02/08/20 02/08/20 (Trintellix) Previous Rx's Medication Instructions Recorded cephalexin 500 mg capsule 500 mg PO Q6H 7 days #28 caps 08/28/22 Allergies Allergy/AdvReac Type Severity Reaction Status Date / Time No Known Drug Allergies Allergy Verified 08/22/20 20:04 Review of Systems Review of Systems Narrative: GENERAL: See HPI HEENT: Denies sinus pain, ear pain, sore throat, difficulty swallowing, dizziness. RESPIRATORY: Denies dyspnea, cough, wheezing, hemoptysis, sputum. CARDIOVASCULAR: Denies chest pain, palpitations, orthopnea, edema, GASTROINTESTINAL: Denies nausea, vomiting, abdominal pain, diarrhea, constipation, melena. : Denies dysuria, frequency, incontinence, hematuria, urinary retention. MUSCULOSKELETAL: denies weakness, joint pain, or bony pain SKIN: See HPI NEUROLOGIC: Denies weakness, headache, numbness, change in speech, confusion, seizures, incoordination. PSYCHIATRIC: No concerning psychosocial issues. 12 point review of systems is negative except for those stated above Patient History Medical History (Updated 08/28/22 @ 19:43 by Schuyler Payne DO) Bipolar disorder Dyspepsia Hyperlipidemia Surgical History History of appendectomy Family History Mother TIA (transient ischemic attack) Kidney disease Father Cancer Sister No significant medical problems Social History household members: spouse Smoking Status: Never smoker alcohol intake: never Smoking Status: Never smoker Substance Use Type: marijuana Exam Narrative Exam Narrative: GENERAL: [71] year old patient appears stated age. Well-developed patient, in mild distress. GCS 14 (mild confusion at baseline) HEAD: Large area of superficial abrasion on forehead including bridge of nose, there is a 1 cm irregular laceration on the right forehead above the brow with minimal active bleeding and no obvious foreign body. No evidence of depressed skull fracture EYES: Pupils equal round and reactive. No hyphema Extraocular motions intact. No scleral icterus. No injection or drainage. ENT: Nose without bleeding, purulent drainage. Abrasions on bridge of nose, no active bleeding one 0.5cm laceration, dried blood in right naris, no nasal septal hematoma. Patient able to breathe through both nostrils without difficulty. Patient denies any malocclusion, there is no obvious dental injury Throat without erythema, tonsillar hypertrophy or exudate. Airway patent. NECK: Trachea midline. Non tender CARDIOVASCULAR: Regular rate and rhythm without murmurs, gallops, or rubs. RESPIRATORY: Clear to auscultation. Breath sounds equal bilaterally. No wheezes, rales, or rhonchi. GASTROINTESTINAL: Abdomen soft, non-tender, nondistended. EXTREMITIES: No edema or joint tenderness. BACK: Nontender without deformity or crepitance. No flank tenderness. NEURO: Cranial nerves 2-12 grossly intact SKIN: No rash or erythema of visible areas Initial Vital Signs Initial Vital Signs: Vital Signs Temperature 98.1 F 08/28/22 15:05 Pulse Rate 49 L 08/28/22 15:05 Respiratory Rate 18 08/28/22 15:05 Blood Pressure 145/67 H 08/28/22 15:05 Pulse Oximetry 99 08/28/22 15:05 Oxygen Delivery Method 08/28/22 15:05 Procedures Laceration Repair Laceration 1: Site: face Side (If applicable): right Size (cm): 1.5 Description: stellate Depth: simple, single layer Local Anesthetic: bupivacaine 0.5% and with epi Amount of anesthesia used (mL): 4 Pre-repair: wound explored and cleansed with chlorhexadine Skin layer closed with: nylon Skin layer suture size: 5-0 Number of sutures: 3 Technique: simple, interrupted Laceration 2: Site: face (nose) Size (cm): 0.5 Description: linear Depth: simple, single layer Local Anesthetic: bupivacaine 0.5% and with epi Amount of anesthesia used (mL): 2 Pre-repair: wound explored and cleansed with chlorhexadine Skin layer closed with: nylon Skin layer suture size: 5-0 Number of sutures: 1 Course Orders Ordered: ED Orders 08/28/22 15:09 CT cervical spine wo con Stat CT head/brain wo con Stat 08/28/22 15:52 XR chest 1V Stat 08/28/22 16:02 EKG-12 Lead Stat 08/28/22 16:08 Complete Blood Count AUTO DIFF Stat Comprehensive Metabolic Panel Stat Lipase Stat Partial Thromboplastin Time Stat Prothrombin Time INR Stat Type and Screen Stat 08/28/22 16:43 COVID19 -Nasal RAPID/Pre-Proc Stat Hydromorphone HCl (Hydromorphone 0.5 Mg Inj) 0.5 mg IV Q15MIN PRN PRN Reason: Pain, Last Admin: 08/28/22 16:49 Dose: 0.5 mg Documented By: AMU Discontinued Medications Diphtheria/Tetanus/Acell Pertussis (Tet,Diph,Pertuss(Acell),Vac/Pf 0.5 Ml Syringe) 0.5 ml IM .ONCE ONE Stop: 08/28/22 19:16 Last Admin: 08/28/22 19:35 Dose: 0.5 ml Ketorolac Tromethamine (Ketorolac 30 Mg/Ml Vial) 15 mg IV NOW ONE Stop: 08/28/22 19:16 Last Admin: 08/28/22 19:35 Dose: 15 mg Lorazepam (Lorazepam 2 Mg/Ml Inj) 1 mg IV NOW ONE Stop: 08/28/22 15:59 Last Admin: 08/28/22 16:10 Dose: 1 mg Documented By: LAURA Ondansetron HCl (Ondansetron 4 Mg/2 Ml Inj) 4 mg IV NOW ONE Stop: 08/28/22 19:16 Last Admin: 08/28/22 19:35 Dose: 4 mg Vital Signs Vital signs: Vital Signs - 8 hr 08/28/22 15:05 08/28/22 16:43 08/28/22 17:00 Temperature 98.1 F Pulse Rate 49 L 56 L 48 L Respiratory Rate 18 22 12 Blood Pressure 145/67 H Pulse Oximetry 99 96 95 Oxygen Delivery Method Room Air 08/28/22 17:01 08/28/22 17:01 08/28/22 17:30 Temperature Pulse Rate 48 L 47 L Respiratory Rate 16 14 Blood Pressure 136/60 Pulse Oximetry 95 98 Oxygen Delivery Method 08/28/22 17:31 08/28/22 17:31 08/28/22 18:00 Temperature Pulse Rate 47 L 50 L Respiratory Rate 13 20 Blood Pressure 155/74 H Pulse Oximetry 97 97 Oxygen Delivery Method 08/28/22 18:01 08/28/22 18:01 08/28/22 18:30 Temperature Pulse Rate 47 L 47 L Respiratory Rate 22 Blood Pressure 127/59 L Pulse Oximetry 97 97 Oxygen Delivery Method 08/28/22 18:31 08/28/22 18:31 08/28/22 19:00 Temperature Pulse Rate 47 L 62 Respiratory Rate Blood Pressure 132/61 Pulse Oximetry 97 98 Oxygen Delivery Method 08/28/22 19:01 08/28/22 19:01 08/28/22 19:30 Temperature Pulse Rate 64 52 L Respiratory Rate Blood Pressure 138/65 Pulse Oximetry 98 98 Oxygen Delivery Method 08/28/22 19:31 08/28/22 19:31 Temperature Pulse Rate 54 L Respiratory Rate Blood Pressure 171/79 H Pulse Oximetry 98 Oxygen Delivery Method MDM - Fall Lab Data Result diagrams: 08/28/22 16:08 08/28/22 16:08 Labs: Lab Results 08/28/22 08/28/22 08/28/22 Range/Units 16:08 16:08 16:08 WBC 7.9 (4.5-11.0) X10^3/uL RBC 4.23 L (4.5-5.9) X10^6/uL Hgb 14.3 (13.5-17.5) g/dL Hct 41.1 (41-53) % MCV 97.2 (80-100) fL MCH 33.7 (26-34) PG MCHC 34.7 (30-36) % RDW 13.8 (11.6-14.8) % Plt Count 210 (150-400) X10^3/uL Neut % (Auto) 84.8 H (50-75) % Lymph % (Auto) 8.5 L (25-40) % [place] % (Auto) 6.3 (3-14) % Eos % (Auto) 0.1 L (2-4) % Baso % (Auto) 0.3 (0-2) % Neut # (Auto) 6700 (2297-4603) /uL Lymph # (Auto) 700 L (3466-4265) /uL [place] # (Auto) 500 (0-900) /uL Eos # (Auto) 0 (0-450) /uL Baso # (Auto) 0 (0-100) /uL PT 11.6 (10.1-12.7) SECONDS INR 1.0 (0.9-1.3) APTT 25 L (26-36) SECONDS Sodium 135 L (137-145) mmol/L Potassium 4.3 (3.4-5.1) mmol/L Chloride 103 (98-107) mmol/L Carbon Dioxide 24 (22-32) mmol/L BUN 16 (9-20) mg/dL Creatinine 0.80 (0.66-1.25) mg/dL Estimated GFR > 60 (>60) mL/min BUN/Creatinine Ratio 20.0 (6-22) Glucose 107 (80-110) mg/dL Calcium 9.1 (8.4-10.2) mg/dL Total Bilirubin 0.6 (0.2-1.3) mg/dL AST 36 (17-59) IU/L ALT 32 (<50) IU/L Alkaline Phosphatase 40 (38-126) U/L Total Protein 7.3 (6.3-8.2) g/dL Albumin 4.1 (3.5-5.0) g/dL Globulin 3.2 (1.7-4.1) g/dL Albumin/Globulin Ratio 1.3 (1.0-2.8) Lipase 67 (23-300) U/L Blood Type Antibody Screen 08/28/22 Range/Units 16:08 WBC (4.5-11.0) X10^3/uL RBC (4.5-5.9) X10^6/uL Hgb (13.5-17.5) g/dL Hct (41-53) % MCV (80-100) fL MCH (26-34) PG MCHC (30-36) % RDW (11.6-14.8) % Plt Count (150-400) X10^3/uL Neut % (Auto) (50-75) % Lymph % (Auto) (25-40) % [place] % (Auto) (3-14) % Eos % (Auto) (2-4) % Baso % (Auto) (0-2) % Neut # (Auto) (5352-6991) /uL Lymph # (Auto) (7334-5965) /uL [place] # (Auto) (0-900) /uL Eos # (Auto) (0-450) /uL Baso # (Auto) (0-100) /uL PT (10.1-12.7) SECONDS INR (0.9-1.3) APTT (26-36) SECONDS Sodium (137-145) mmol/L Potassium (3.4-5.1) mmol/L Chloride (98-107) mmol/L Carbon Dioxide (22-32) mmol/L BUN (9-20) mg/dL Creatinine (0.66-1.25) mg/dL Estimated GFR (>60) mL/min BUN/Creatinine Ratio (6-22) Glucose (80-110) mg/dL Calcium (8.4-10.2) mg/dL Total Bilirubin (0.2-1.3) mg/dL AST (17-59) IU/L ALT (<50) IU/L Alkaline Phosphatase (38-126) U/L Total Protein (6.3-8.2) g/dL Albumin (3.5-5.0) g/dL Globulin (1.7-4.1) g/dL Albumin/Globulin Ratio (1.0-2.8) Lipase (23-300) U/L Blood Type O Positive Antibody Screen Negative Urine Dip Bedside Urine Glucose Negative Bedside Urine Bilirubin - Negative Bedside Urine Ketone - Negative Urine Specific [place] 1.010 Bedside Urine Occult Blood - Negative Bedside Urine pH 6.0 Bedside Urine Protein - Negative Bedside Urine Urobilinogen - Negative Bedside Urine Nitrite - Negative Bedside Urine Leukocytes - Negative Esterase Discharge Plan Departure Patient Disposition: Home Clinical Impression: Forehead laceration, Abrasion of face, Contusion of sternum, Acute chest wall pain, Closed fracture nasal bone Instructions: DI for Trauma Activity Restrictions/Additional Instructions: *You have been diagnosed with [fall with minor injuries as a consequence. As we discussed your CT scans of head, facial bones and neck are largely reassuring, there are small nondisplaced nasal bone fractures and we will give you contact information for [facility] to follow up but there is nothing that would require immediate intervention *What to do: *Please continue to take your regular medications as directed. [x ] New medication prescriptions sent to your pharmacy: [ ] [ ] New medication written as a paper prescription [ ] No new medications given * Please keep the wound clean and dry to the best of your ability. Please monitor for signs of infection such as redness to the skin or increasing pain. Have the sutures/heaven removed by your doctor in about 7 days. If you are unable to get into your doctor, we would be happy to remove the sutures/heaven in that same timeframe. *Return to Emergency Department if you should have any new, worsening or concerning symptoms, such as [fever greater than 101 F, shaking chills, worsening pain, persistent vomiting or other bothersome symptoms] Prescriptions: New cephalexin 500 mg capsule 500 mg PO Q6H 7 Days Qty: 28 0RF No Action trazodone 100 mg Tablet 100 mg PO BEDTIME PRN (Reason: Sleep) simvastatin 20 mg Tablet 20 mg PO BEDTIME omeprazole 20 mg Capsule,Delayed Release(Dr/Ec) 20 mg PO DAILY bupropion HCl 300 mg Tablet Extended Release 24 Hr 300 mg PO QAM Trintellix 20 mg Tablet 20 mg PO DAILY Referrals: Dat Joyce MD [Physician] -
[2022-08-28] MEDS: TET,DIPH,PERTUSS(ACELL),VAC/PF 0.5 ML SYRINGE IM (19:35)
[2022-08-28] MEDS: KETOROLAC 30 MG/ML VIAL 15 MG IV (19:35)
[2022-08-28] MEDS: ONDANSETRON 4 MG/2 ML INJ IV (19:35)
== END 2022-08-28 20:09 | disposition home or self-care (01) ==
PROVIDERS: Emergency Medicine; Emergency Provider Emergency Medicine
DX: S01.81XA Laceration without foreign body of other part of head, initial encounter (principal); S20.219A Contusion of unspecified front wall of thorax, initial encounter; R07.89 Other chest pain; S02.2XXA Fracture of nasal bones, initial encounter for closed fracture; W19.XXXA Unspecified fall, initial encounter; Z23 Encounter for immunization
CPT/HCPCS: 12011; 36415; 70450; 70486; 71045; 72125; 80053; 81003; 83690; 85025; 85610; 85730; 86850; 86900; 86901; 90471; 93005; 96374; 96375; 99284; 99285; 90715; J1170; J1885; J2060; J2405